=== PATIENT | female | born 1990 ===

== ENCOUNTER 2025-07-24 18:33 | Inpatient (IN) | payer MEDICAID, SELFPAY ==
--- OUTSIDE RECORDS SUMMARY | 2025-07-23 16:38 | XMS_ITS | Encounter Summary ---
Author Organization [facility][Note 3] Address [address] [place] [address] Care Team Providers Care Registered Vascular Technologist (Rvt) Name Role Phone Zandra Weiss MD Primary Care Provider [phone] Reason for Visit * Reason Comments Psychiatric Evaluation * Auth/Cert (Routine) Specialty Diagnoses / Procedures Referred By Contac t Referred To Contact Diagnoses Suicidal ideation Referral ID Status Reason Start Date Expiration Date Visits Re quested Visits Authorized [id number] 1 1 Encounter Details Date Type Department Care Team (Latest Contact Info) Description 07/23/2025 4:38 PM EDT - 07/24/2025 4:44 PM EDT Hospital Encounter [facility] [address] [phone] Cydney Newton MD [address] [place] [phone] Stella Elizabeth MD [address] [place] [phone] Pacheco Cano MD [address] [place] [phone] Shonna Celeste MD [address] [place] [phone] Suicidal ideation (Primary Dx) Discharge Disposition: Psych Hospital with Planned Readmission Social History Tobacco Use Types Packs/Day Years Used Date Smoking Tobacco: Former Cigarettes Q uit: 07/2023 Smokeless Tobacco: Never Comments No Sex and Gender Information Value Date Recorded Sex Assigned at Female 07/23/2025 5:15 PM EDT Legal Sex Female 7:52 AM EDT Gender Identity Female 07/23/2025 5:15 PM EDT Sexual Orientation Straight 07/23/2025 5: 15 PM EDT documented as of this encounter Last Filed Vital Signs Vital Sign Reading Time Taken Comments Blood Pressure 121/78 07/24/2025 8:28 AM EDT Pulse 72 07/24/2025 8:28 AM EDT Temperature 36.3 C (97.4 F) 07/24/2025 2:05 AM EDT Respiratory Rate 16 07/24/2025 8:28 AM EDT Oxygen Saturation 99% 07/24/2025 8:28 AM EDT Inhaled Oxygen Concentration - - Weight - - Height - - Body Mass Index - - documented in this encounter Discharge Summaries * Shonna Celeste MD - 07/24/2025 3:10 PM EDT Discharge Diagnosis 1. Suicidal ideation Discharge Order Date/Time 07/24/2025 3:11 PM Discharge Disposition Psych Hospital with Planned Readmission Discharge Condition Condition: Fair HPI 35 y.o. female placed in observation medically cleared with: 1. Suicidal ideation HPI Per ED note Jasmin Montenegro is a 35 y.o. year old female with mood disorder, borderline personality disorder who presents with suicidal ideation Reports worsening mood recently in the setting of psychosocial stressors and having thoughts of killing herself Denies recent attempt at self injury Denies HI Denies hallucinations No recent ETOH/illicits. Denies feeling of impnding ETOH/benzo withdrawal Adherent with current psych care When asked about physical symptoms, endorses she has a bit of a mild gradual onset headache withoutother neuro symptoms Past History Past Medical History: Diagnosis Date No known health problems Past Surgical History: Procedure Laterality Date SECTION 2014 CHOLECYSTECTOMY 2021 PARTIAL HYSTERECTOMY 09/14/2023 TUBAL LIGATION 2014 No family history on file. Social History Tobacco Use Smoking Status Former Current packs/day: 0.00 Types: Cigarettes Quit date: 07/2023 Years since quittin.0 Smokeless Tobacco Never Substance and Sexual Activity Alcohol Use Not on file Substance and Sexual Activity Drug Use Not on file Labs Reviewed COMPREHENSIVE METABOLIC PANEL - Abnormal; Notable for the following components: Result Value Chloride 111 (*) All other components within normal limits Narrative: Calculation based on the Chronic Kidney Disease Epidemiology Collaboration (CKD- EPI) equation refitwithout adjustment for race. ACETAMINOPHEN LEVEL - Abnormal; Notable for the following components: Acetaminophen Level <2 (*) All other components within normal limits TOXICOLOGY SCREEN, URINE (NON FCU) - Abnormal; Notable for the following components: Cannabinoids Qualitative, Ur Detected (*) All other components within normal limits Narrative: This urine immunoassay drug method is for medical SCREENING only and should not be used for non-medical (employment,legal) purposes. The test result(s) may be affected by dietary and over the counter medications. Negative cut-offs for these tests are set to detect DRUG ABUSE. Therapeutic levels of these drugs may not be detected. (The negative cut-offs for the drug classes are: Cocaine, Methadone, Opiates 300 ng/ml; Barbituates, Benzodiazepines 200 ng/ml; Amphetamines 1000 ng/ml; Cannabinoids 50 ng/ml; Buprenorphine 5 ng/ml; Oxycodone 100 ng/ml; Fentanyl 1 ng/ml). As this is a screening methodology, any positive results are UNCONFIRMED. Confirmation of positive results may be requested from the laboratory within 5 days. All test results should be interpreted in context of the patient's clinical condition. CBC AND AUTO DIFFERENTIAL - Normal ETHANOL - Normal SALICYLATE LEVEL - Normal TOXICOLOGY SCREEN, URINE Narrative: The following orders were created for panel order Toxicology screen, urine. Procedure Abnormality Status --------- ------ Toxicology screen, urine[[id number]] Abnormal Final result Please view results for these tests on the individual orders. EXTRA TUBES Narrative: The following orders were created for panel order Extra Tubes. Procedure Abnormality Status --------- ------ Red Top[[id number]] Final result Light Blue Top[[id number]] Final result Please view results for these tests on the individual orders. RED TOP LIGHT BLUE TOP Physical Exam General: Alert. No distress. Pulmonary: No respiratory distress Neurological: Moving all extremities at baseline Psychiatric: Calm Assessment & Plan 35 y.o. female placed in observation medically cleared with: 1. Suicidal ideation Discharge Summary 35 y.o. year old female with mood disorder, borderline personality disorder who presents with suicidal ideation After further treatment and assessment during this observation stay, I conclude that this patient is medically stable, but requires inpatient psychiatric evaluation to address an unstable behavioral condition. Total time spent preparing this discharge summary was less than 30 minutes. Shonna Celeste MD 07/24/25 [id number] documented in this encounter Discharge Instructions * Discharge Instructions* Cydney Newton MD - 07/23/2025 8:06 PM EDT You were seen in the emergency department today for evaluation. It is VERY VERY important that you follow up with your primary care doctor as well as any resourcesyou discussed with social work. Please call your doctor after your discharge and tell them about your symptoms and visit here. Call your doctor or return to the ER if you have any new or worsening symptoms before you are able to be seen for follow up, such as: Thoughts of hurting yourself or someone else or feeling otherwise unsafe New or severe pain Fever Vomiting and cannot keep yourself hydrated with fluids Trouble breathing Weakness or numbness Other questions or concerns 23/05 suicide/crisis lifeline: call or text [phone] documented in this encounter Medications at Time of Discharge escitalopram 10 MG tablet Take 1 tablet (10 mg total) by mouth daily 09/06/2024 lamoTRIgine (LaMICtal) 100 MG tablet Take 1.5 tablets (150 mg total) by mouth daily documented as of this encounter Progress Notes * AUTUMN ButtSW - 07/24/2025 2:23 PM EDT PSYCHIATRIC FACILITY TRANSFER NOTIFICATION FORM Type of Placement: Voluntary No Involuntary Yes Section 12 Needed Yes Inpatient Level of Care (check one): X Inpatient Psych ?Med/Psych ?[facility]-Psych ? Inpatient Dual Diagnosis ?[facility] ? [facility] ?Other Facility Name: [facility] Address: [address] [place] [address] Aeronautical Inspector: Admissions Accepting MD: Dr. Thompson Date/Time of Arrival: 07/24/2025 @ 6pm PATIENT Notified: X Yes: ? No (explain): Family / Legal Guardian / Health Care Proxy Notified: ? Yes (name of person/s contacted): ? No (explain): If Pt would like to anyone contacted, CHW able to do so MICKEY signed with accepting facility ([facility] patients ONLY): ? Yes ([facility] Patient) ? No (NOT a [facility] Patient) Additional Information / Instruction BLS JAMES Vaz 07/24/2025 2:23 PM * JAMES Butt - 07/24/2025 2:17 PM EDT Pt has been accepted to [facility]. Transfer form and section 12 completed and will be given to JAMES Way 07/24/2025 2:17 PM * Pacheco Cano MD - 07/24/2025 6:21 AM EDT Daily Progress Note Time In Obs. 3 hours 30 minutes 50 seconds Chief Complaint 1. Suicidal ideation HPI 35 y.o. female placed in observation medically cleared with: 1. Suicidal ideation HPI Objective Ht Readings from Last 1 Encounters: 09/25/24 6' (1.829 m) Wt Readings from Last 1 Encounters: 09/25/24 150 lb (68 kg) There is no height or weight on file to calculate BMI. Allergies[1] Vital signs in last 24 hours: [97.4 ??F (36.3 ??C)-98.1 ??F (36.7 ??C)] 97.4 ??F (36.3 ??C) [67-89] 67 [18-20] 18 (114-132)/(50-77) 114/50 Physical Exam General: Alert. No distress. Pulmonary: No respiratory distress Neurological: Moving all extremities at baseline Psychiatric: Calm Assessment/Plan 35 y.o. female placed in observation medically cleared with: 1. Suicidal ideation Based on my history, physical examination, and initial ED course, the patient's behavioral condition continues to be unstable and requires further observation to help determine final disposition. Plan will be to monitor for significant changes in medical and psychiatric status, observe for and treat agitation, psychosis, or withdrawal symptoms, coordinate care with social work team, and ensure patient safety. ED Course as of 07/24/25620Jul 24, 2025620 Received this patient in sign-out. No acute events overnight. Clinical Impressions: as of 07/24/25620 Suicidal ideation [1] Allergies Allergen Reactions Cow's Milk [Milk (Cow)] GI Intolerance Lidocaine Rash Penicillins Rash Prednisone Rash Pacheco Cano MD 07/24/25621 documented in this encounter Consult Notes * Aubrie Henderson, IVET - 07/23/2025 7:36 PM EDTAssociated Order(s): CONSULT TO MENTAL HEALTH ASSESSMENT Referred by: ED physician Chief Complaint (Reason for visit): Suicidal Ideation Intervention Started: 7:33p Intervention Ended: 8:02p Telehealth: No A consult was placed to assess for suicidal ideations. Chart was reviewed and the patient was identified by name and . Reviewed confidentiality and limits to confidentiality prior to evaluation. Plan Disposition plan: Involuntary inpatient psychiatric hospitalization Psychosocial History Jasmin Montenegro is a 35 y.o. not female who came into the ED via PD after going to Crisis due to thoughts of wanting to walk into the ocean or slit her wrist . met with Pt at bedside. Pt was alert and oriented x3, able to identify self by name and . Pt states that she self presented to the crisis center after an increased irritability, mood changes and suicidal ideations. PT states that she has had thoughts about wanting to slit her wrist and has a history of inpatient hospitalizations (last in ) and last self injurious behaviors was 9 months ago. Pt states that the increase in mood dysregulation/agitation started about 2 weeks ago after finding out her daughter attempted to commit suicide. Pt's children are not currently in her custody and lives with their grandparents. Pt discussed how she became triggered also after finding heroin in a clothing item at her job (Pt denies any use of substances besides marijuana since 2013). Ptstates that she struggled with finding the substance but was able to abstain from using it. Pt identified an increase in anger, decrease in concentration/focus and being more negative towards self. Pt states that she has a diagnosis of Borderline Personality Disorder, PTSD, Bipolar, anxiety and depression. Pt has no outside providers (PCP prescribes medication) and works at [employer]. Positive for: panic, anxiety, depression, sleep change, appetite change, and suicidal ideation Negative for: yuniel, psychosis, anhedonia, anergia, delusions, homicidal ideation, and thought disorder Collateral contacts: Attempts made to contact partner; Abhilash ([phone]) VM left, and friend, Ifeoma ([phone]) VM not set up. Depression Screening PHQ-9 [Not at all (0) Several days (1) More than half the days (2) Nearly every day (3)] Little interest or pleasure in doing things: 3 Feeling down, depressed, or hopeless: 3 Trouble falling or staying asleep, or sleeping too much: 3 Feeling tired or having little energy: 3 Poor appetite or overeatin Feeling bad about yourself - or that you are a failure or have let yourself or your family down: 3 Trouble concentrating on things, such as reading the newspaper or watching television: 3 Moving or speaking so slowly that other people could have noticed. Or the opposite - being so fidgety or restless that you have been moving around a lot more than usual: 3 Thoughts that you would be better off , or of hurting yourself in some way: 3 PHQ-9 Total Score: 27 0 - 4: None to Minimal Depression 5 - 9: Mild Depression 10 - 14: Moderate Depression 15 - 19: Moderately Severe Depression 20 - 27: Severe Depression Anxiety Screening RUKHSANA 7 Over the last 2 weeks, how often have you been bothered by the following problems? [Not at all (0) Several days (1) More than half the days (2) Nearly every day (3)] Feeling nervous, anxious or on edge 3 Not being able to stop or control worrying 3 Worrying too much about different things 3 Trouble relaxing 3 Being so restless that it is hard to sit still 3 Becoming easily annoyed or irritable 3 Feeling afraid as if something awful might happen 3 RUKHSANA-7 Total Score: 21 0 - 4: None to Minimal Anxiety 5 - 9: Mild Anxiety 10 - 14: Moderate Anxiety 15 - 21: Severe Anxiety Past Psychiatric History Current treatment providers: Yes-PCP History of inpatient psychiatric hospitalizations: Yes History of suicide attempts/self-injurious behavior: Yes History of violence: No Access to weapons: Yes-Pt has knives (non-kitchen ones) History of post- depression Yes Substance Use History and Assessment Substances used: cannabis Amount: daily Frequency and duration of use: daily Method of use:ingestion/inhalation Last use: this morning Age of first use: N/A Longest period of sobriety: 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 Never Monthly or less 2 - 4 times per month 2 - 3times per week 4 + times per week 1 How many drinks of alcohol do you drink on a typical day when you are drinking? 1 to 2 3 to 4 5 to 6 7 to 9 10 or more 0 How often have you had 6 or more drinks on a single occasion in the last year? Never Less than monthly Monthly Weekly Daily or almost daily 0 Total Score* 1 Brief Negotiated Interview: The AUDIT-C score was less than 3 for women and less than for 4 for men, so a brief negotiated interview was not conducted with the patient Drug Abuse Screening Test DAST -10 Assessment: These questions refer to drug use in the past 12 months. 1. Have you used drugs other than those required for medical reasons? No 2. Do you use more than one drug at a time? No 3. Are you always able to stop using drugs when you want to? Yes 4. Have you had blackouts or flashbacks as a result of drug use? No 5. Do you ever feel bad or guilty about your drug use? No 6. Does your spouse (or parents) ever complain about your involvement with drugs? No 7. Have you neglected your family because of your use of drugs? No 8. Have you engaged in illegal activities in order to obtain drugs? No 9. Have you ever experienced withdrawal symptoms (felt sick) when you stopped taking drugs? No 10. Have you had medical problems as a result of your drug use (e.g., memory loss, hepatitis, convulsions, bleeding, etc.)? No Scoring Score 1 point for each question answered ???Yes,?? except for question 3 for which a ???No?? receives 1 point. DAST Score: 0 Interpretation of Score: Score Degree of Problems Related to Drug Abuse Suggested Action 0 No problems reported None at this time 1-2 Low level Monitor Reassess at a later date 3-5 Moderate level Further investigation 6-8 Substantial level Intensive assessment 9-10 Severe level Intensive assessment PT states that she uses marijuana daily but denies any other substance use. Family Psychiatric History: noncontributory Developmental/Social History Marital status: lives with intermediate card tender partner Living arrangements: lives with intermediate card tender partner Support system: friends/family Employment status: works at [employer] Source of income: employment Education level: N/A Healthcare access/barriers: uninsured ADLS: independent IADLS: independent HCP: No Guardian: No Legal history:No history:No Trauma history: Yes Mental Status Exam Appearance: alert well appearing Behavior: restless and cooperative Consciousness/Orientation: oriented to time, place, person, and reason for visit Eye contact: mainly direct Motor activity: no psychomotor agitation and no psychomotor retardation Mood: anxious, appropriate to circumstances, and depressed Affect: full-range and appropriate Speechnormal rate, tone and rhythm Thought process: normal Thought content: suicidal Perception (hallucinations): none Delusions: none elicited Suicidal/Homicidal Ideation: suicidal ideation with plan and intent, no homicidal ideation Concentration/attention: difficulty with focus and attention and down slightly Memory: recent and remote memory intact Intelligence/fund of knowledge: appears average Impulsivity: good impulse control Reliability: good historian Insight: good Judgment: unimpaired Psychological Risk Assessment Current Risk Behavior: Description: Suicidal and Self-Harm Thoughts/Ideation/plan/means/intent:Description: Ideation, Plan, Means, and Intent History of Risk Behavior or Harmful Acts to Self or Others: Yes Risk and protective factors:Description: suicidal history, self harm 9 months ago Impression/Formulation Patient is a 35 y/o female who was transported via EMS from [facility] due to increasing suicidal ideations with plan and increased mood dysregulation, depression and anxiety. Patient endorses thoughts of wanting to slit her wrist and states that she has felt this coming for a while . Pt has a history of inpatient hospitalizations and self injurious behaviors. Pt reports being diagnosed with borderline personality disorder, PTSD, depression, anxiety and bipolar. Pt is currently on medicationsbut states they are not working . Pt has no outpatient psych or providers but does see PCP for med management. Pt would benefit from inpatient psych hospitalization and process was explained. Diagnosis:MDD F33.9, RUKHSANA F41.1 Therapy plan: Target symptoms:depression, anxiety, suicidal ideations Goals of therapy:reduction in symptoms, stablization Patients capacity to participate and benefit from therapy:good Estimated duration of treatment/number of sessions:1-3 Treatment is expected to improve the health status and/or functioning of the patient. yes Does pt meet CCS level or care, and if not why?:no, acuity Aubrie Henderson LCSW 07/23/2025 @ 7:36 PM documented in this encounter ED Notes * Tasha Shook RN - 07/24/2025 4:18 PM EDT Report and all of pt's belongings including cell phone at this time. * Tasha Shook RN - 07/24/2025 3:26 PM EDT Report given to [facility]. Report given to OSVALDO Diaz * Tasha Shook RN - 07/24/2025 12:18 PM EDT Pt reporting 9/10 headache at this time. made aware. * Tasha Shook RN - 07/24/2025 7:21 AM EDT Assumed care. Pt resting comfortably in bed at this time. Equal unlabored respirations noted. Will continue to monitor pt's mood and behaviors. * Noel Fleming RN - 07/24/2025 6:27 AM EDT PT HAS BEEN SLEEPING FOR MOST OF THE NIGHT, BREATHING HAS BEEN EVEN AND UNLABORED, PT C/O HEAD ACHEEARLIER AND HAD GOOD EFFECT FROM THE TYLENOL, PT SLEEPING AT THIS TIME * Noel Fleming RN - 07/24/2025 2:00 AM EDT THE [employer] SYSTEM WAS UNAVAILABLE FOR 1 HOUR ON 07/24/25 FROM 01:00 TO 02:00. DOWNTIME DOCUMENTATION IS LOCATED IN THE PAPER CHART AND WILL BE SCANNED BY HIM. * Noel Fleming RN - 07/23/2025 11:34 PM EDT ASSUMED CARE OF PT, PT QUIETLY TALKING ON THE PHONE AND WATCHING TV AT THIS TIME, NO COMPLAINTS OFFERED, WILL CONTINUE TO MONITOR * Basia Fontana RN - 07/23/2025 11:11 PM EDT Patient out of shower and returned to bed * Basia Fontana RN - 07/23/2025 10:53 PM EDT Patient provided fresh scrubs and sitter allowed for shower * Cydney Newton MD - 07/23/2025 6:44 PM EDT Service Date: ED Arrival Date 07/23/25 Chief Complaint Chief Complaint Patient presents with Psychiatric Evaluation HPI HPI Jasmin Montenegro is a 35 y.o. year old female with mood disorder, borderline personality disorder who presents with suicidal ideation Reports worsening mood recently in the setting of psychosocial stressors and having thoughts of killing herself Denies recent attempt at self injury Denies HI Denies hallucinations No recent ETOH/illicits. Denies feeling of impnding ETOH/benzo withdrawal Adherent with current psych care When asked about physical symptoms, endorses she has a bit of a mild gradual onset headache withoutother neuro symptoms ROS Review of Systems Past History Past Medical History: Diagnosis Date No known health problems Past Surgical History: Procedure Laterality Date SECTION 2014 CHOLECYSTECTOMY 2021 PARTIAL HYSTERECTOMY 09/14/2023 TUBAL LIGATION 2014 No family history on file. Social History[1] LMP/OB Status OB Status Hysterectomy [3] Physical Exam Triage Vitals [07/23/25 1644] BP 132/76 Heart Rate 89 Resp 20 Temp 98.1 ??F (36.7 ??C) Temp src Oral SpO2 97 % Weight Height There is no height or weight on file to calculate BMI. Patient weight not recorded Physical Exam Gen: non-toxic, NAD HENT: NC/AT. Oropharynx clear Eyes: Sclera anicteric. Neck: Trachea midline Cor: RRR, 2+ peripheral pulses Resp: Unlabored respirations, symmetric chest rise Abd: soft, NTND Ext: 2+ peripheral pulses. No LE edema. Neuro: A&Ox3. Motor strength grossly symmetric. Psych: calm, cooperative Skin: WDI ED Course Labs reviewed by me: Labs Reviewed COMPREHENSIVE METABOLIC PANEL - Abnormal; Notable for the following components: Result Value Chloride 111 (*) All other components within normal limits Narrative: Calculation based on the Chronic Kidney Disease Epidemiology Collaboration (CKD- EPI) equation refitwithout adjustment for race. ACETAMINOPHEN LEVEL - Abnormal; Notable for the following components: Acetaminophen Level <2 (*) All other components within normal limits CBC AND AUTO DIFFERENTIAL - Normal ETHANOL - Normal SALICYLATE LEVEL - Normal TOXICOLOGY SCREEN, URINE Narrative: The following orders were created for panel order Toxicology screen, urine. Procedure Abnormality Status --------- ------ Toxicology screen, urine[[id number]] Please view results for these tests on the individual orders. TOXICOLOGY SCREEN, URINE (NON FCU) EXTRA TUBES Narrative: The following orders were created for panel order Extra Tubes. Procedure Abnormality Status --------- ------ Red Top[[id number]] In process Light Blue Top[[id number]] In process Please view results for these tests on the individual orders. RED TOP LIGHT BLUE TOP Radiology imaging reviewed by me: No orders to display Procedures No notes on file Progress Medical Decision Making Jasmin Montenegro is a 35 y.o. female who presents with suicidal ideation. Most consistent with underlying psych disorder. Differential includes depression, SI, substance use disorder, psychotic disorder. Clinical presentation not consistent with acute organic etiology such as delirium, FLOOR REFINISHER pathology, acute tox ingestion/withdrawal. she has no physical complaints and an unremarkable exam. -basic and tox labs -monitor for s/sx of withdrawal -1:1 sitter for safety -Sw eval Workup as above Evaluated by social work, plan for inpatient psychiatric admission for stabilization Will place in observation in the ED for further psychiatric evaluation and care, including ongoing assessment, monitoring for signs of withdrawal or worsening condition, medication as needed, and facilitation of safe disposition. NUMBER OF PROBLEMS: Chronic illnesses addressed (2 for mod): Patient has a history of: mood disorder, borderline personality disorder Patient has an acute illness or injury: I considered: metabolic derangement which poses a threat to bodily function. Patient has a severe exacerbation or progression of: AMOUNT OF DATA (2 for high): Tests and historians included (3): I ordered and reviewed tests as listed above in results and below, including: Any ECG listed under procedures. No orders to display Any labs above I reviewed external records and found: seen at another ER in december for abdominal pain I obtained history and assessment from patient I discussed management or test interpretation with: social work manager, see above, oncoming ED physician RISK: Social determinants of health that significantly affected care include: Prescription management included: New Prescriptions No medications on file Decisions of care included (high): anticipate transfer for psychiatric care Medications considered or given included (high): Medications nicotine 21 MG/24HR (NICODERM CQ) transdermal system 1 patch (has no administration in time range) acetaminophen (TYLENOL EXTRA STRENGTH) tablet 1,000 mg (1,000 mg Oral Given 07/23/251937) Clinical Impressions: Clinical Impressions: as of 07/23/252005 Suicidal ideation Care Transferred: Disposition Data Unavailable [1] Social History Socioeconomic History Marital status: Single Tobacco Use Smoking status: Former Current packs/day: 0.00 Types: Cigarettes Quit date: 07/2023 Years since quittin.0 Smokeless tobacco: Never Vaping Use Vaping status: Every Day Substances: Nicotine Cydney Newton MD 07/23/252007 * Suzanne Nunn RN - 07/23/2025 6:40 PM EDT New UA collected and sent to lab at this time. * Andressa Díaz MA - 07/23/2025 5:13 PM EDT Belongings on hook 5. 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 Reports not the first time skyla had suicidal thoughts, previous suicide attempt in 2020. Pt calm and cooperative with staff, resting quietly in stretcher. * Olga Sky RN - 07/23/2025 4:41 PM EDT Pt BIBPD on sec 12 +SI w/ plan to walk into ocean or cut wrists. Pt calm and cooperative on arrival. documented in this encounter Miscellaneous Notes * ED Procedure Note - Shonna Celeste MD - 07/24/2025 11:43 AM EDTAssociated Order(s): EKG electrocardiogram EKG electrocardiogram Date/Time: 07/24/2025 11:43 AM Performed by: Shonna Celeste MD Authorized by: Shonna Celeste MD Measurements: BPM: 73 GA Duration: 108 ms Findings: Rate: normal Rhythm: Sinus rhythm Normal intervals noted Conduction: normal ST Segments: normal T Waves: normal Clinical impression: normal ECG Interpreted by ED physician Comparison to Previous ECG: Comparison from 05/28/2024 similar to previous ECG Shonna Celeste MD 07/24/25 1144 documented in this encounter Plan of Treatment Not on file documented as of this encounter Procedures Procedure Name Priority Date/Time Associated Diagnosis Comments ECG 12-LEAD STAT 07/24/2025 11:43 AM EDT TOXICOLOGY SCREEN, URINE (NON FCU) STAT 07/23/2025 5:55 PM EDT TOXICOLOGY SCREEN, URINE STAT 07/23/2025 5:55 PM EDT EXTRA TUBES Routine 07/23/2025 4:54 PM EDT RED TOP Routine 07/23/2025 4:54 PM EDT LIGHT BLUE TOP Routine 07/23/2025 4:54 PM EDT CBC AND AUTO DIFFERENTIAL STAT 07/23/2025 4:54 PM EDT ETHANOL STAT 07/23/2025 4:54 PM EDT ACETAMINOPHEN LEVEL STAT 07/23/2025 4 :54 PM EDT SALICYLATE LEVEL STAT 07/23/2025 4:54 PM EDT COMPREHENSIVE METABOLIC PANEL STAT 07/23/2025 4:54 PM EDT documented in this encounter Results * ECG 12-LEAD (07/24/2025 11:43 AM EDT) Shonan Lanza MD - 07/24/2025 11:43 AM EDT Shonna Celeste MD 07/24/2025 11:44 AM EKG electrocardiogram Date/Time: 07/24/2025 11:43 AM Performed by: Shonna Celeste MD Authorized by: Shonna Celeste MD Measurements: BPM: 73 GA Duration: 108 ms Findings: Rate: normal Rhythm: Sinus rhythm Normal intervals noted Conduction: normal ST Segments: normal T Waves: normal Clinical impression: normal ECG Interpreted by ED physician Comparison to Previous ECG: Comparison from 05/28/2024 similar to previous ECG us Shonna Celeste MD ECG ORDERABLES Final Resu lt * (ABNORMAL) Toxicology screen, urine (07/23/2025 5:55 PM EDT) Amphetamine Qualitative, Ur None Detected None Detected 07/23/2025 7:29 PM EDT [facility] Barbiturates Qualitative, Ur None Detected None Detected 07/23/2025 7:29 PM EDT [facility] Benzodiazepines Qualitative, Ur None Detected None Detected 07/23/2025 7:29 PM EDT [facility] Methadone Qualitative, Ur None Detected None Detected 07/23/2025 7:29 PM EDT [facility] Opiates Qualitative, Ur None Detected None Detected 07/23/2025 7:29 PM EDT [facility] Cannabinoids Qualitative, Ur Detected(A) None Detected 07/23/2025 7:29 PM EDT [facility] Cocaine Qualitative, Ur None Detected None Detected 07/23/2025 7:29 PM EDT [facility] Oxycodone Qualitative Urine None Detected None Detected 07/23/2025 7:29 PM EDT [facility] Buprenorphine Qualitative Urine None Detected None Detected 07/23/2025 7:29 PM EDT [facility] Fentanyl Qualitative, Ur None Detected None Detected 07/23/2025 7:29 PM EDT [facility] Creatinine, Urine 91.0 20.0 - 400.0 mg/dL 07/23/2025 7:29 PM EDT [facility] Urine Collection / Unknown 07/23/2025 5:55 PM EDT 07/23/2025 7:01 PM EDT Narrative [facility] - 07/23/2025 7:29 PM EDT This urine immunoassay drug method is for medical SCREENING only and should not be used for non-medical (employment,legal) purposes. The test result(s) may be affected by dietary and over the counter medications. Negative cut-offs for these tests are set to detect DRUG ABUSE. Therapeutic levels of these drugs may not be detected. (The negative cut-offs for the drug classes are: Cocaine, Methadone, Opiates 300 ng/ml; Barbituates, Benzodiazepines 200 ng/ml; Amphetamines 1000 ng/ml; Cannabinoids 50 ng/ml; Buprenorphine 5 ng/ml; Oxycodone 100 ng/ml; Fentanyl 1 ng/ml). As this is a screening methodology, any positive results are UNCONFIRMED. Confirmation of positive results may be requested from the laboratory within 5 days. All test results should be interpreted in context of the patient's clinical condition. us Triage Protocol Emergency MD URINE ORDERABLES Fi nal Result [facility] [address] [place] [id number] * Light Blue Top (07/23/2025 4:54 PM EDT) Extra Tube Auto resulted. 07/23/2025 8:56 PM EDT [facility] Comment:Hold for add-ons. Blood 07/23/2025 4:54 PM EDT 07/23/2025 4:57 PM EDT Cydney Newton MD LAB BLOOD ORDERABLES Final Res ult Performing Organization Address City/[facility]/ZIP Co de Phone Number [facility] [address] [place] [phone] * Red Top (07/23/2025 4:54 PM EDT) Extra Tube Auto resulted. 07/23/2025 8:56 PM EDT [facility] Comment:Hold for add-ons. Blood 07/23/2025 4:54 PM EDT 07/23/2025 4:57 PM EDT Cydney Newton MD LAB BLOOD ORDERABLES Final Res ult Performing Organization Address [facility]/ZIP Co de Phone Number [facility] [address] [place] [phone] * Salicylate level (07/23/2025 4:54 PM EDT) Salicylate <3.0 <30.0 mg/dL 07/23/2025 5:18 PM EDT [facility] Blood Venipuncture / Unknown 07/23/2025 4:54 PM EDT 07/23/2025 4:54 PM EDT Sintia Rushing MD LAB BLOOD ORDERABLE S Final Result Performing Organization Address City/[facility]/ZIP Co de Phone Number [facility] [address] [place] [phone] * (ABNORMAL) Acetaminophen level (07/23/2025 4:54 PM EDT) Acetaminophen Level <2(L) 10 - 20 ug/mL 07/23/2025 5:18 PM EDT [facility] Blood Venipuncture / Unknown 07/23/2025 4:54 PM EDT 07/23/2025 4:54 PM EDT us Triage Protocol Emergency MD LAB BLOOD ORDERABLE S Final Result Performing Organization Address City/[facility]/ZIP Co de Phone Number [facility] [address] [place] [address] * Ethanol (07/23/2025 4:54 PM EDT) Ethanol Lvl <3 <10 mg/dL 07/23/2025 5:18 PM EDT [facility] Blood Venipuncture / Unknown 07/23/2025 4:54 PM EDT 07/23/2025 4:54 PM EDT us Triage Protocol Emergency MD LAB BLOOD ORDERABLE S Final Result Performing Organization Address City/[facility] Co de Phone Number [facility] [address] [place] [phone] * (ABNORMAL) Comprehensive metabolic panel (07/23/2025 4:54 PM EDT) Sodium 140 136 - 145 mEq/L 07/23/2025 5:17 PM EDT [facility] Potassium 3.6 3.5 - 5.1 mEq/L 07/23/2025 5:17 PM EDT [facility] Chloride 111(H) 98 - 109 mEq/L 07/23/2025 5:17 PM EDT [facility] CO2 24 20 - 31 mEq/L 07/23/2025 5:17 PM EDT [facility] Anion Gap 5 4 - 15 mEq/L 07/23/2025 5:17 PM EDT [facility] Glucose 86 70 - 100 mg/dL 07/23/2025 5:17 PM EDT [facility] Creatinine 0.74 0.50 - 1.00 mg/dL 07/23/2025 5:17 PM EDT [facility] eGFR (Female) >60 60 - 115 mL/min 07/23/2025 5:17 PM EDT [facility] BUN 10 9 - 23 mg/dL 07/23/2025 5:17 PM EDT [facility] Calcium 9.2 8.3 - 10.6 mg/dL 07/23/2025 5:17 PM EDT [facility] Total Protein 7.2 5.7 - 8.2 g/dL 07/23/2025 5:17 PM EDT [facility] Albumin 4.3 3.2 - 4.8 g/dL 07/23/2025 5:17 PM EDT [facility] A/G Ratio 1.5 1.0 - 2.3 07/23/2025 5:17 PM EDT [facility] Total Bilirubin 0.4 0.2 - 1.0 mg/dL 07/23/2025 5:17 PM EDT [facility] AST 19 13 - 40 U/L 07/23/2025 5:17 PM EDT [facility] Alkaline Phosphatase 56 46 - 116 IU/L 07/23/2025 5:17 PM EDT [facility] ALT 19 7 - 40 U/L 07/23/2025 5:17 PM EDT [facility] Blood Venipuncture / Unknown 07/23/2025 4:54 PM EDT 07/23/2025 4:54 PM EDT Narrative [facility] - 07/23/2025 5:17 PM EDT Calculation based on the Chronic Kidney Disease Epidemiology Collaboration (CKD- EPI) equation refit without adjustment for race. us Triage Protocol Emergency MD LAB BLOOD ORDERABLE S Final Result [facility] [address] [place] [address] * CBC and Auto Differential (07/23/2025 4:54 PM EDT) WBC 7.4 4.8 - 11.2 10*3/ L 07/23/2025 5:04 PM EDT [facility] RBC 3.86 3.60 - 5.40 10*6/ L 07/23/2025 5:04 PM EDT [facility] HGB 12.2 12.0 - 15.8 g/dL 07/23/2025 5:04 PM EDT [facility] HCT 36.5 36.0 - 48.0 % 07/23/2025 5:04 PM EDT [facility] MCV 94.6 82.0 - 98.0 fL 07/23/2025 5:04 PM EDT [facility] MCH 31.6 27.0 - 35.0 pg 07/23/2025 5:04 PM EDT [facility] MCHC 33.4 32.0 - 37.0 g/dL 07/23/2025 5:04 PM EDT [facility] RDW 12.5 12.0 - 15.0 % 07/23/2025 5:04 PM EDT [facility] PLT 300 150 - 400 10*3/ L 07/23/2025 5:04 PM EDT [facility] MPV 9.0 7.0 - 14.0 fL 07/23/2025 5:04 PM EDT [facility] Neut % 61.8 45.0 - 85.0 % 07/23/2025 5:04 PM EDT [facility] Immature Granulocytes % 0.3 0 - 5.0 % 07/23/2025 5:04 PM EDT [facility] Lymph % 29.5 15.0 - 45.0 % 07/23/2025 5:04 PM EDT [facility] [place] % 6.1 0.0 - 12.0 % 07/23/2025 5:04 PM EDT [facility] Eos % 0.9 0.0 - 7.0 % 07/23/2025 5:04 PM EDT [facility] Baso % 1.4 0.0 - 3.0 % 07/23/2025 5:04 PM EDT [facility] NRBC% 0 0 /100 WBC /100 WBC 07/23/2025 5:04 PM EDT [facility] Neut # 4.6 2.2 - 9.5 10*3/ L 07/23/2025 5:04 PM EDT [facility] Immature Granulocytes Absolute 0.02 0.00 - 0.56 10*3/ L 07/23/2025 5:04 PM EDT [facility] L[place] # 2.2 0.7 - 5.0 10*3/ L 07/23/2025 5:04 PM EDT [facility] [place] # 0.5 0.0 - 1.3 10*3/ L 07/23/2025 5:04 PM EDT [facility] Eos # 0.1 0.0 - 0.4 10*3/ L 07/23/2025 5:04 PM EDT [facility] Baso # 0.1 0.0 - 0.3 10*3/ L 07/23/2025 5:04 PM EDT [facility] Blood Venipuncture / Unknown 07/23/2025 4:54 PM EDT 07/23/2025 4:54 PM EDT us Triage Protocol Emergency MD LAB BLOOD ORDERABLE S Final Result Performing Organization Address City/State/[facility] Co de Phone Number [facility] [address] [place] [address] documented in this encounter Visit Diagnoses Diagnosis Suicidal ideation- Primary Suicidal ideation documented in this encounter Admitting Diagnoses Diagnosis Suicidal ideation documented in this encounter Administered Medications Active Administered Medications - up to 3 most recent administrations Medication Order MAR Action Action Date Dose Rate Site escitalopram (LEXAPRO) tablet 10 mg 10 mg, Oral, At bedtime, First dose on Tue07/23/25 at 2100 Given 07/23/2025 8:45 PM EDT 10 mg lamoTRIgine (LaMICtal) tablet 150 mg 150 mg, Oral, Daily, First dose on Tue07/24/25 at 0900, Look-alike / Sound-alike Medication Given 07/24/2025 8:57 AM EDT 150 mg nicotine 21 MG/24HR (NICODERM CQ) transdermal system 1 patch 1 patch, Transdermal, Daily, First dose on Tue07/23/25 at 2002, Remove patch after 24 hours. *For Topical Use Only* P-listed Waste Code- Use P-LISTED WASTE container, place med and packaging in small plastic bag before placing in waste container Patch Applied 07/24/2025 8:58 AM EDT 1 patch Chest Patch Applied 07/23/2025 8:22 PM EDT 1 patch Right Arm Inactive Administered Medications - up to 3 most recent administrations Medication Order MAR Action Action Date Dose Rate Site acetaminophen (TYLENOL EXTRA STRENGTH) tablet 1,000 mg 1,000 mg, Oral, Once, On Tue07/23/25 at 1933, For 1 dose, Adult MAX: NOT to exceed 4 grams of ACETAMINOPHEN per 24 hrs from ALL sources. Given 07/23/2025 7:38 PM EDT 1,000 mg acetaminophen (TYLENOL) tablet 650 mg 650 mg, Oral, Once, On Tue07/24/25 at 0458, For 1 dose, Adult MAX: NOT to exceed 4 grams of ACETAMINOPHEN per 24 hrs from ALL sources. Given 07/24/2025 4:59 AM EDT 650 mg acetaminophen (TYLENOL) tablet 650 mg 650 mg, Oral, Once, On Tue07/24/25 at 1233, For 1 dose, Adult MAX: NOT to exceed 4 grams of ACETAMINOPHEN per 24 hrs from ALL sources. Given 07/24/2025 12:37 PM EDT 650 mg documented in this encounter Active and Recently Administered Medications Times are shown in EDT. Scheduled Medication Order 07/22/2025 07/23/2025 07/24/2025 acetaminophen (TYLENOL EXTRA STRENGTH) tablet 1,000 mg (COMPLETED) 1,000 mg, Oral, Once, On Tue07/23/25 at 1933, For 1 dose, Adult MAX: NOT to exceed 4 grams of ACETAMINOPHEN per 24 hrs from ALL sources. 1937 (Given - Provider: Basia Fontana RN) acetaminophen (TYLENOL) tablet 650 mg (COMPLETED) 650 mg, Oral, Once, On Tue07/24/25 at 0458, For 1 dose, Adult MAX: NOT to exceed 4 grams of ACETAMINOPHEN per 24 hrs from ALL sources. 458 (Given - Provid er: Noel Fleming RN) acetaminophen (TYLENOL) tablet 650 mg (COMPLETED) 650 mg, Oral, Once, On Tue07/24/25 at 1233, For 1 dose, Adult MAX: NOT to exceed 4 grams of ACETAMINOPHEN per 24 hrs from ALL sources. 1237 (Given - Provid er: Tasha Shook, OSVALDO) escitalopram (LEXAPRO) tablet 10 mg 10 mg, Oral, At bedtime, First dose on Tue07/23/25 at 2100 2044 (Given - Provider: Basia Fontana RN) 2100 (Due) lamoTRIgine (LaMICtal) tablet 150 mg 150 mg, Oral, Daily, First dose on Tue07/24/25 at 0900, Look-alike / Sound-alike Medication 0857 (Given - Provid er: Tasha Shook RN) nicotine 21 MG/24HR (NICODERM CQ) transdermal system 1 patch 1 patch, Transdermal, Daily, First dose on Tue07/23/25 at 2002, Remove patch after 24 hours. *For Topical Use Only* P-listed Waste Code- Use P-LISTED WASTE container, place med and packaging in small plastic bag before placing in waste container 2021 (Patch Applied - Provider: Basia Fontana RN) 0857 (Patch Removed - Provider: Tasha Shook RN)0858 (Patch Applied - Provider: Tasha Shook RN) documented in this encounter Care Teams Registered Vascular Technologist (Rvt) Relationship Specialty Start Date End Date Zandra Weiss MD [address] [place], [place] [address], [place] [address] PCP - General Internal Medicine 05/28/24 documented as of this encounter
--- OUTSIDE RECORDS SUMMARY | 2025-07-24 18:38 | XMS_ITS | Encounter Summary ---
Author Organization [facility] [place] Address [address] [place] [address] Care Team Providers Care Manufacturing Clerk Name Role Phone Zandra Weiss MD Primary Care Provider [phone] Encounter Details Date Type Department Care Team (Latest Contact Info) Description 07/23/2025 Travel Social History Tobacco Use Types Packs/Day Years Used Date Smoking Tobacco: Former Cigarettes Q uit: 07/2023 Smokeless Tobacco: Never Comments No Sex and Gender Information Value Date Recorded Sex Assigned at Female 07/23/2025 5:15 PM EDT Legal Sex Female 7:52 AM EDT Gender Identity Female 07/23/2025 5:15 PM EDT Sexual Orientation Straight 07/23/2025 5: 15 PM EDT documented as of this encounter Plan of Treatment Not on file documented as of this encounter Visit Diagnoses Not on filedocumented in this encounter Care Teams Manufacturing Clerk Relationship Specialty Start Date End Date Zandra Weiss MD [address] [place] [address] [address], [address] [address] PCP - General Internal Medicine 05/28/24 documented as of this encounter
--- OUTSIDE RECORDS SUMMARY | 2025-07-24 18:38 | XMS_ITS | Patient Health Record ---
Author Organization [facility] Address [address] [place] [id number] Care Team Providers Care Pelletizer Tender Name Role Phone OUTSIDE, PCP Primary Care Provider UnavailMalena Pearson Unavailable [phone] Mirian Griffith DMD Unavailable [phone] Allergies Allergen (clinical drug ingredient) Drug/Non Drug Allergy documented on EMR Reaction Allergy Type Onset Date Status penicillin V penicillin V potassium Unknown Drug Allergy Active prednisone predniSONE Unknown Drug Allergy Activ e lidocaine Unknown Drug Allergy Active Reason For Referral Reason Please evaluate teet h #28,29,30 for Ext , Thank you Diagnosis 1 Dental cavities (K02 .9) Referral Organization [facility] of Referring Provider First Name Mirian Referring Provider Last Name Kay elam Referring Provider Speciality Dentist - Pricing/Signage Team Member Referred Provider Specialty Oral Surgery Referral Priority Routine Medications Medication SIG (Take, Route, Fr equency, Duration) Notes Start Date End Date Status clindamycin 300 mg 1 cap(s) orally ever y 8 hours; Duration: 7 days 04/06/2025 Unknown clindamycin 300 mg 1 cap(s) orally ever y 6 hours; Duration: 5 days 05/08/2025 Active lamoTRIgine Active Vital Signs Temperature 98.8 degrees Fahrenheit 04/06/2025 Oximetry 100 % 04/06/2025 Blood pressure diastolic 70 mm Hg 05/08/2025 Blood pressure systolic 106 mm Hg 05/08/2025 Encounters Encounter Location Date Provider Diagnosis [facility] [address] [place], [place] [id number] 04/06/2025 Malena Joya Dental abscess K04.7 [facility] [address] [place], [place] [id number] 05/08/2025 Mirian Nascimento Dental examination Z01.20 [facility] [address] [phone] 04/22/2025 Malena Joya Assessments Encounter Date Diagnosis (ICD Code) Assessment Notes Treatment Notes Treatment Clinical Notes Section Notes 04/06/2025 Dental abscess (ICD-10 - K04.7) Patient to use medication as ordered above. Stressed importance of calling dental clinic as soon as possible for appointment.. Can use warm salt water gargles for discomfort. If patient experiences fevers, severe uncontrolled pain, increased drainage/swelling or difficulty swallowing, should immediately go to ER for further treatment. Patient to follow up if no relief noted or with worsening symptoms if unable to see dentist. Patient verbalized understanding and agreement with plan of care. 05/08/2025 Dental examination (ICD-10 - Z01.20) Plan Of Treatment No Information
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
--- OUTSIDE RECORDS SUMMARY | 2025-07-24 18:38 | XMS_ITS | Encounter Summary ---
Author Organization [facility] Address [address] [place] [address] Care Team Providers Care Manager Market Name Role Phone Og Silav MD Primary Care Provider [phone] James Hood MD Primary Care Provider [phone] Reason for Visit * Reason Comments Med Refill Encounter Details Date Type Department Care Team ([facility] Contact Info) Description 04/22/2025 Refill [facility] [address] [place] [address] Adelina Madera NP [address] [place] [address] Moderate episode of recurrent major depressive disorder (CMS-HCC) Social History Tobacco Use Types Packs/Day Years Used Date Smoking Tobacco: Former Cigarettes Q uit: 07/02/2023 Smokeless Tobacco: Never Comments:Vaping daily Alcohol Use Standard Drinks/Week Comments [...] Orientation Bisexual 10/28/2023 5: 26 AM EST documented as of this encounter Plan of Treatment Upcoming Encounters Date Type Department Care Team (Late st Contact Info) Description 11/21/2025 2:15 PM EST Office Visit [facility] [address] [place] [address] documented as of this encounter Visit Diagnoses Diagnosis Moderate episode of recurrent major depressive disorder ([facility]-HCC) documented in this encounter Care Teams Manager Market Relationship Specialty Start Date End Date Og Silva MD PCP - General Hospitalist 03/16/23 04/28/25 James Hood MD [address] [place] [address] PCP - General Internal Medicine 04/29/25 documented as of this encounter
--- OUTSIDE RECORDS SUMMARY | 2025-07-24 18:38 | XMS_ITS | Encounter Summary ---
Author Organization [facility] Address [address] [place] [address] Care Team Providers Care Local Area Network Administrator Name Role Phone Pcp, No Primary Care Provider Zandra Beard MD Primary Care Provider [phone] Encounter Details Date Type Department Care Team (Late st Contact Info) Description 09/27/2023 Procedure Pass [address] [address] Social History Tobacco Use Types Packs/Day Years [...] on filedocumented in this encounter Care Teams Local Area Network Administrator Relationship Specialty Start Date End Date Pcp, Cynthia [address] PCP - General 09/27/23 05/27/24 Zandra Weiss MD [address] [place] [address], [facility], [address] [address] PCP - General Internal Medicine 05/28/24 documented as of this encounter
--- OUTSIDE RECORDS SUMMARY | 2025-07-24 18:38 | XMS_ITS | Clinical Summary ---
Author Organization [facility] Address [address] [place] [phone] Phone Care Team Providers Care Staffing Mgr Name Role Phone Pcp, None MD Primary Care Provider Unavailabl e Allergies Active Allergy Reactions Criticality Noted Date Comments Lidocaine Rash Low 10/21/2022 Milk (Cow) GI Intolerance 09/27/2023 Penicillins Rash Low 10/21/2022 Prednisone Rash Low 10/21/2022 Medications Medication Sig Dispensed Refills Start Date End Date Status escitalopram (LEXAPRO) 10 MG tablet TAKE 1 TABLET BY MOUTH 1 TIME EACH DAY. 09/06/2024 Active Social History Tobacco Use Types Packs/Day Years Used Date Smoking Tobacco: Every Day Cigarettes 1 20 Smokeless Tobacco: Never Tobacco Cessation:Ready to Q uit: Not Asked; Counseling Given: Not Answered Alcohol Use Standard Drinks/Week Comments Not Currently 0 (1 standard drink = 0.6 oz pur e alcohol) Sex and Gender Information Value Date Recorded Sex Assigned at Not on file Gender Identity Not on file Sexual Orientation Not on file Last Filed Vital Signs Vital Sign Reading Time Taken Comments Blood Pressure 135/78 01/21/2025 8:37 PM EDT Pulse 76 01/21/2025 8:37 PM EDT Temperature 36.9 C (98.4 F) 01/21/2025 8:37 PM EDT Respiratory Rate 17 01/21/2025 8:37 PM EDT Oxygen Saturation 100% 01/21/2025 8:37 PM EDT Inhaled Oxygen Concentration - - Weight 74.8 kg (165 lb) 01/21/2025 8:37 PM EDT Height 182.9 cm (6') 01/21/2025 8:37 PM EDT Body Mass Index 22.38 01/21/2025 8:37 PM EDT Plan of Treatment Not on file Care Teams Staffing Mgr Relationship Specialty Start Date End Date Pcp, None, PCP - General Internal Medicine 01/21/25
--- OUTSIDE RECORDS SUMMARY | 2025-07-24 18:38 | XMS_ITS | Encounter Summary ---
Author Organization [facility] Address [address] [place] [address] Care Team Providers Care Community Relations Liaison Name Role Phone Og Silva MD Primary Care Provider [phone] James Hood MD Primary Care Provider [phone] Encounter Details Date Type Department Care Team (Late st Contact Info) Description 09/14/2023 Orders Only [place] [address] MD [address] [place] [address] Nausea after anesthesia, initial encounter (Primary Dx) Social History Tobacco Use Types Packs/Day Years Used Date Smoking Tobacco: Former Cigarettes Q uit: 07/02/2023 Smokeless Tobacco: Current Alcohol Use Standard Drinks/Week Comments Not Currently 0 (1 standard drink = 0.6 oz pur e alcohol) Recovery Comments No Sex and Gender Information Value Date Recorded Sex Assigned at Not on file Legal Sex Female 7:03 AM EST Gender Identity Female 10/28/2023 5:26 AM EST Sexual Orientation Bisexual 10/28/2023 5: 26 AM EST documented as of this encounter Progress Notes * Omid Lane MD - 09/14/2023 2:57 PM EST navyaan documented in this encounter Plan of Treatment Upcoming Encounters Date Type Department Care Team (Late st Contact Info) Description 11/21/2025 2:15 PM EST Office Visit [facility] [place] [address] documented as of this encounter Visit Diagnoses Diagnosis Nausea after anesthesia, initial encounter- Primary documented in this encounter Care Teams Community Relations Liaison Relationship Specialty Start Date End Date Og Silva MD PCP - General Hospitalist 03/16/23 04/28/25 James Hood MD [address] [place] [address] PCP - General Internal Medicine 04/29/25 documented as of this encounter
--- OUTSIDE RECORDS SUMMARY | 2025-07-24 18:38 | XMS_ITS | Encounter Summary ---
Author Organization [facility] Address [address] [place] [address] Care Team Providers Care Assistant Professor Of Life Sciences Name Role Phone Og Silva MD Primary Care Provider [phone] James Hood MD Primary Care Provider [phone] Reason for Visit * Reason Onset Date Comments Depression 09/03/2024 Encounter Details Date Type Department Care Team (Late st Contact Info) Description 09/03/2024 Telephone [facility] [address] [place] [address] Og Silva MD [address] [place] [id number] Depression Social History Tobacco Use Types Packs/Day Years Used Date Smoking Tobacco: Former Cigarettes Q uit: 07/02/2023 Smokeless Tobacco: Current Comments:Vaping daily Alcohol Use Standard Drinks/Week Comments Not Currently 0 (1 standard drink = 0.6 oz pur e alcohol) Recovery Comments No Sex and Gender Information Value Date Recorded Sex Assigned at Not on file Legal Sex Female 7:03 AM EST Gender Identity Female 10/28/2023 5:26 AM EST Sexual Orientation Bisexual 10/28/2023 5: 26 AM EST documented as of this encounter Miscellaneous Notes * Telephone Encounter - Ivone Dumont - 09/05/2024 2:34 PM EST 09/06 at 11:30am * Telephone Encounter - Ivone Dumotn - 09/04/2024 11:07 AM EST Patient will need a virtual appointment. * Telephone Encounter - Germania Osei NP - 09/03/2024 4:08 PM EST Spoke with the patient via telephone today. She states that she would like to schedule an appointment to discuss antidepressant medication, as she was taking one in the past and feels that it is time for her to go back on one. She reports that she is stable and denies suicidal ideation or homicidal ideation. Please schedule an appointment with the clinic for this patient. * Telephone Encounter - Germania Osei NP - 09/03/2024 2:07 PM EST Left the patient a telephone voicemail message requesting a call back to the clinic * Telephone Encounter - Shirley Trinidad - 09/03/2024 12:23 PM EST Patient lvm asking to make an apt for a mental health medication . Please advise documented in this encounter Plan of Treatment Upcoming Encounters Date Type Department Care Team (Late st Contact Info) Description 11/21/2025 2:15 PM EST Office Visit [facility] [place] [address] documented as of this encounter Visit Diagnoses Not on filedocumented in this encounter Care Teams Assistant Professor Of Life Sciences Relationship Specialty Start Date End Date Og Silva MD PCP - General Hospitalist 03/16/23 04/28/25 James Hood MD [facility] [place] [address] PCP - General Internal Medicine 04/29/25 documented as of this encounter
--- OUTSIDE RECORDS SUMMARY | 2025-07-24 18:38 | XMS_ITS | Clinical Summary ---
Author Organization [facility] Address [address] [place] [address] Care Team Providers Care Jig Grinder Name Role Phone Zandra Weiss MD Primary Care Provider Allergies Active Allergy Reactions Criticality Noted Date Comments Milk (Cow) GI Intolerance 09/27/2023 Lidocaine Rash Low 10/21/2022 Penicillins Rash Low 10/21/2022 Prednisone Rash Low 05/28/2024 Medications escitalopram 10 MG tablet Take 1 tablet (10 mg total) by mouth daily Active lamoTRIgine (LaMICtal) 100 MG tablet Take 1.5 tablets (150 mg total) by mouth daily Active ondansetron (ZOFRAN) 4 MG tablet Take 1 tablet (4 mg total) by mouth every 6 (six) hours as needed 4 07/23/20 25 Discontinued Active Problems Problem Noted Date Diagnosed Date Suicidal ideation 07/23/2025 Encounters Date Type Department Care Team Description 07/23/2025 4:38 PM EDT - 07/24/2025 4:44 PM EDT Hospital Encounter [facility] [address] [place] [id number] Cydney Newton MD Perry, Megan E, MD Malinconico, Lawrence M, MD Gallagher, Lauren P, MD Suicidal ideation (Primary Dx) Discharge Disposition: [facility] Hospital with Planned Readmission 07/23/2025 Travel from Last 3 Months Social History Tobacco Use Types Packs/Day Years Used Date Smoking Tobacco: Former Cigarettes Q uit: 07/2023 Smokeless Tobacco: Never Tobacco Cessation:Counseling Given: Not Answered Comments No Sex and Gender Information Value Date Recorded Sex Assigned at Female 07/23/2025 5:15 PM EDT Legal Sex Female 7:52 AM EDT Gender Identity Female 07/23/2025 5:15 PM EDT Sexual Orientation Straight 07/23/2025 5: 15 PM EDT Last Filed Vital Signs Vital Sign Reading Time Taken Comments Blood Pressure 121/78 07/24/2025 8:28 AM EDT Pulse 72 07/24/2025 8:28 AM EDT Temperature 36.3 C (97.4 F) 07/24/2025 2:05 AM EDT Respiratory Rate 16 07/24/2025 8:28 AM EDT Oxygen Saturation 99% 07/24/2025 8:28 AM EDT Inhaled Oxygen Concentration - - Weight 68 kg (150 lb) 09/25/2024 12:10 PM EST Height 182.9 cm (6') 09/25/2024 12:10 PM EST Body Mass Index 20.34 09/25/2024 12:10 PM EST Plan of Treatment Health Maintenance Due Date Last Done Comments Annual Physical 1993 Hepatitis B Screening 02/13/2008 DTaP,Tdap,and Td Vaccines (2 - Tdap) 12/11/2024 12/11/2014 COVID-19 Vaccine (2023-2 5 season) 2025 Influenza Vaccine (#1) 2025 HIB Vaccines Aged Out No longer eligi ble based on patient's age to complete this topic Hepatitis A Vaccine Aged Out No longe r eligible based on patient's age to complete this topic Pneumococcal Vaccines 0-49 y rs (includes High Risk) Aged Out No longer eligible based on patient's age to complete this topic Procedures Procedure Name Priority Date/Time Associated Diagnosis Comments ECG 12-LEAD STAT 07/24/2025 11:43 AM EDT TOXICOLOGY SCREEN, URINE (NON FCU) STAT 07/23/2025 5:55 PM EDT TOXICOLOGY SCREEN, URINE STAT 07/23/2025 5:55 PM EDT LIGHT BLUE TOP Routine 07/23/2025 4:54 PM EDT RED TOP Routine 07/23/2025 4:54 PM EDT EXTRA TUBES Routine 07/23/2025 4:54 PM EDT SALICYLATE LEVEL STAT 07/23/2025 4:54 PM EDT ACETAMINOPHEN LEVEL STAT 07/23/2025 4 :54 PM EDT ETHANOL STAT 07/23/2025 4:54 PM EDT COMPREHENSIVE METABOLIC PANEL STAT 07/23/2025 4:54 PM EDT CBC AND AUTO DIFFERENTIAL STAT 07/23/2025 4:54 PM EDT from Last 3 Months Results * ECG 12-LEAD (07/24/2025 11:43 AM EDT) Shonna Lanza MD - 07/24/2025 11:43 AM EDT Shonna Celeste MD 07/24/2025 11:44 AM EKG electrocardiogram Date/Time: 07/24/2025 11:43 AM Performed by: Shonna Celeste MD Authorized by: Shonna Celeste MD Measurements: BPM: 73 IL Duration: 108 ms Findings: Rate: normal Rhythm: [...] Detected None Detected 07/23/2025 7:29 PM EDT [facility] Barbiturates Qualitative, Ur None Detected None Detected 07/23/2025 7:29 PM EDT [facility] Benzodiazepines Qualitative, Ur None Detected None Detected 07/23/2025 7:29 PM EDT [facility] Methadone Qualitative, Ur None Detected None Detected 07/23/2025 7:29 PM EDT [facility] Opiates Qualitative, Ur None Detected None Detected 07/23/2025 7:29 PM EDT [facility] Cannabinoids Qualitative, Ur Detected(A) None Detected 07/23/2025 7:29 PM EDT [facility] Cocaine Qualitative, Ur None Detected None Detected 07/23/2025 7:29 PM EDT [facility] Oxycodone Qualitative Urine None Detected None Detected 07/23/2025 7:29 PM EDT [facility] Buprenorphine Qualitative Urine None Detected None Detected 07/23/2025 7:29 PM EDT [facility] Fentanyl Qualitative, Ur None Detected None Detected 07/23/2025 7:29 PM EDT [facility] Creatinine, Urine 91.0 20.0 - 400.0 mg/dL 07/23/2025 7:29 PM EDT [facility] Urine Collection / Unknown 07/23/2025 5:55 PM EDT 07/23/2025 7:01 PM EDT Narrative [facility] - 07/23/2025 7:29 PM EDT This [...] Emergency MD URINE ORDERABLES Fi nal Result [facility] [address] [place] [address] * Red Top (07/23/2025 4:54 PM EDT) Extra Tube Auto resulted. 07/23/2025 8:56 PM EDT [facility] Comment:Hold for add-ons. Blood 07/23/2025 4:54 PM EDT 07/23/2025 4:57 PM EDT Cydney Newton MD LAB BLOOD ORDERABLES Final Res ult Performing Organization Address [facility]/ZIP Co de Phone Number [facility] [address] [place] [phone] * Light Blue Top (07/23/2025 4:54 PM EDT) Extra Tube Auto resulted. 07/23/2025 8:56 PM EDT [facility] Comment:Hold for add-ons. Blood 07/23/2025 4:54 PM EDT 07/23/2025 4:57 PM EDT Cydney Newton MD LAB BLOOD ORDERABLES Final Res ult Performing Organization Address City/[facility]/ZIP Co de Phone Number [facility] [address] [place] [phone] * CBC and Auto Differential (07/23/2025 4:54 PM EDT) WBC 7.4 4.8 - 11.2 10*3/ L 07/23/2025 5:04 PM EDT [facility] RBC 3.86 3.60 - 5.40 10*6/ L 07/23/2025 5:04 PM EDT [facility] HGB 12.2 12.0 - 15.8 g/dL 07/23/2025 5:04 PM EDT [facility] HCT 36.5 36.0 - 48.0 % 07/23/2025 5:04 PM EDT [facility] MCV 94.6 82.0 - 98.0 fL 07/23/2025 5:04 PM EDT [facility] MCH 31.6 27.0 - 35.0 pg 07/23/2025 5:04 PM EDT [facility] MCHC 33.4 32.0 - 37.0 g/dL 07/23/2025 5:04 PM EDT [facility] RDW 12.5 12.0 - 15.0 % 07/23/2025 5:04 PM EDT [facility] PLT 300 150 - 400 10*3/ L 07/23/2025 5:04 PM EDT [facility] MPV 9.0 7.0 - 14.0 fL 07/23/2025 5:04 PM EDT [facility] Neut % 61.8 45.0 - 85.0 % 07/23/2025 5:04 PM EDT [facility] Immature Granulocytes % 0.3 0 - 5.0 % 07/23/2025 5:04 PM EDT [facility] Lymph % 29.5 15.0 - 45.0 % 07/23/2025 5:04 PM EDT [facility] [place] % 6.1 0.0 - 12.0 % 07/23/2025 5:04 PM EDT [facility] Eos % 0.9 0.0 - 7.0 % 07/23/2025 5:04 PM EDT [facility] Baso % 1.4 0.0 - 3.0 % 07/23/2025 5:04 PM EDT [facility] NRBC% 0 0 /100 WBC /100 WBC 07/23/2025 5:04 PM EDT [facility] Neut # 4.6 2.2 - 9.5 10*3/ L 07/23/2025 5:04 PM EDT [facility] Immature Granulocytes Absolute 0.02 0.00 - 0.56 10*3/ L 07/23/2025 5:04 PM EDT [facility] Lym # 2.2 0.7 - 5.0 10*3/ L 07/23/2025 5:04 PM EDT [facility] [place] # 0.5 0.0 - 1.3 10*3/ L 07/23/2025 5:04 PM EDT [facility] Eos # 0.1 0.0 - 0.4 10*3/ L 07/23/2025 5:04 PM EDT [facility] Baso # 0.1 0.0 - 0.3 10*3/ L 07/23/2025 5:04 PM EDT [facility] Blood Venipuncture / Unknown 07/23/2025 4:54 PM EDT 07/23/2025 4:54 PM EDT us Triage Protocol Emergency MD LAB BLOOD ORDERABLE S Final Result Performing Organization Address [facility] de Phone Number [facility] [address] [place] [phone] * Ethanol (07/23/2025 4:54 PM EDT) Ethanol Lvl <3 <10 mg/dL 07/23/2025 5:18 PM EDT [facility] Blood Venipuncture / Unknown 07/23/2025 4:54 PM EDT 07/23/2025 4:54 PM EDT us Triage Protocol Emergency MD LAB BLOOD ORDERABLE S Final Result Performing Organization Address [facility] de Phone Number [facility] [address] [place] [phone] * (ABNORMAL) Acetaminophen level (07/23/2025 4:54 PM EDT) Acetaminophen Level <2(L) 10 - 20 ug/mL 07/23/2025 5:18 PM EDT [facility] Blood Venipuncture / Unknown 07/23/2025 4:54 PM EDT 07/23/2025 4:54 PM EDT us Triage Protocol Emergency MD LAB BLOOD ORDERABLE S Final Result Performing Organization Address [facility] Co de Phone Number [facility] [address] [place] [phone] * Salicylate level (07/23/2025 4:54 PM EDT) Salicylate <3.0 <30.0 mg/dL 07/23/2025 5:18 PM EDT [facility] Blood Venipuncture / Unknown 07/23/2025 4:54 PM EDT 07/23/2025 4:54 PM EDT us Triage Protocol Emergency MD LAB BLOOD ORDERABLE S Final Result [facility] [address] [place] [address] * (ABNORMAL) Comprehensive metabolic panel (07/23/2025 4:54 PM EDT) Pathologist [facility] Sodium 140 136 - 145 mEq/L 07/23/2025 5:17 PM EDT [facility] Potassium 3.6 3.5 - 5.1 mEq/L 07/23/2025 5:17 PM EDT [facility] Chloride 111(H) 98 - 109 mEq/L 07/23/2025 5:17 PM EDT [facility] CO2 24 20 - 31 mEq/L 07/23/2025 5:17 PM EDT [facility] Anion Gap 5 4 - 15 mEq/L 07/23/2025 5:17 PM EDT [facility] Glucose 86 70 - 100 mg/dL 07/23/2025 5:17 PM EDT [facility] Creatinine 0.74 0.50 - 1.00 mg/dL 07/23/2025 5:17 PM EDT [facility] eGFR (Female) >60 60 - 115 mL/min 07/23/2025 5:17 PM EDT [facility] BUN 10 9 - 23 mg/dL 07/23/2025 5:17 PM EDT [facility] Calcium 9.2 8.3 - 10.6 mg/dL 07/23/2025 5:17 PM EDT [facility] Total Protein 7.2 5.7 - 8.2 g/dL 07/23/2025 5:17 PM EDT [facility] Albumin 4.3 3.2 - 4.8 g/dL 07/23/2025 5:17 PM EDT [facility] A/G Ratio 1.5 1.0 - 2.3 07/23/2025 5:17 PM EDT [facility] Total Bilirubin 0.4 0.2 - 1.0 mg/dL 07/23/2025 5:17 PM EDT [facility] AST 19 13 - 40 U/L 07/23/2025 5:17 PM EDT [facility] Alkaline Phosphatase 56 46 - 116 IU/L 07/23/2025 5:17 PM EDT [facility] ALT 19 7 - 40 U/L 07/23/2025 5:17 PM EDT [facility] Blood Venipuncture / Unknown 07/23/2025 4:54 PM EDT 07/23/2025 4:54 PM EDT Narrative [facility] - 07/23/2025 5:17 PM EDT Calculation based on the Chronic Kidney Disease Epidemiology Collaboration (CKD- EPI) equation refit without adjustment for race. us Triage Protocol Emergency MD LAB BLOOD ORDERABLE S Final Result Performing Organization Address City/State/[facility] Co de Phone Number [facility] [address] [place] [address] from Last 3 Months Insurance MEDICA[employer] OTHER BILL TO EMPLOYER Care Teams Jig Grinder Relationship Specialty Start Date End Date Zandra Weiss MD [address] [place] [address] [address], [address] [address] PCP - General Internal Medicine 05/28/24
[2025-07-24 18:55] VITALS: BP 125/89; PULSE 63; RESP 16; TEMP 36.6; BMI 22.3
--- NOTE | 2025-07-24 19:23 | PC.NURSE ---
Ms. Jasmin Montenegro arrived via stretcher at 6:44pm from [facility] in [place] and was admitted to [facility]. Provider Mariela Pollock notified. Skin/ safety check completed and was unremarkable. Vitals and weight checked and entered. Admitting diagnoses include MDD and RUKHSANA. Prior to admission she had been suicidal with a plan to walk into the ocean or slit her wrists. Upon arrival she denied SI-HI-AVH and impulses to self harm. She is a current smoker of approximately a half pack daily and would like NRT. She declined [employer]. She reports that she rarely drinks alcohol and does not use other substances except marijuana. She has a history of heroin abuse but has been clean since 2013. She said she lives with her , her girlfriend and her girlfriend's 18 month old child. Jasmin described their relationship as polyamorous. She is employed at a [employer] in [place]. One recent precipitant was recently finding a packet of heroin in an item of clothing at work. This triggered her but she did not use it. Jasmin was given a tour of the unit and given sandwiches and fruit for dinner as it was past the hours for the kitchen to send up a meal. Menu was completed for tomorrow. JEAN-CLAUDE Schuster will be up to sign her in or to sign a 12B. Safety checks q 15 minutes. Admission Risk Assessment completed but Admission assessment and remaining admission items will be completed by a night RN.
--- NOTE | 2025-07-24 23:38 | PM.EVENT ---
Event Note Date of Service: 07/24/25 Event Note: Patient is a 35-year-old female with a past medical history significant for MDD, RUKHSANA, history heroin use (sober times 11 years), tobacco use disorder and marijuana use, admitted from [facility] due to SI, currently on M[facility] adult Psychiatry. Hospitalist consult was placed for medical H and P, patient declines. She denies any chest pain, shortness of breath, nausea, vomiting, abdominal pain or any medical concerns currently. She does not feel she needs a medical consultation and declines any further consultations from us at this time. Thank you for allowing me to participate in the pt's care. Please contact the medical team if any questions or concerns. Time Spent With Patient Time: Total time managing care of this patient today ____ minutes.
--- NOTE | 2025-07-24 23:47 | PC.ADMIT ---
Pt was A&O X4, pleasant and calm on approach. She is isolative to room and withdrawn to self. She denies SI/HI/AV/VH, denies any psych symptoms. She declined to participate or complete the the admission procedure. She states I just want my bedtime meds and sleep tonight, I will do everything tomorrow morning . Pt did not fill or sign any admission paper work/release of information but only signed a CV. She took her HS meds slept off. Treatment plans and safety tools initiated.
[2025-07-25 08:17] VITALS: BP 135/64; PULSE 79; RESP 16; TEMP 36.8; O2SAT 98
[2025-07-25 08:32] LABS: Alanine Aminotransferase 19 U/L (0-31); Albumin Level 4.4 g/dL (3.5-5.0); Alkaline Phosphatase 55 U/L (39-117); Anion Gap 9 (12-20); Aspartate Amino Transferase 26 U/L (5-31); Blood Urea Nitrogen 17 mg/dL (9-16); Calcium 9.3 mg/dL (8.4-10.2); Carbon Dioxide 25 mmol/L (22-29); Chloride 114 mmol/L (96-108); Cholesterol 127 mg/dL (<200); Creatinine Clr Calc Pharmacy 119.2; Estimated Glomerular Filt Rate > 60; HDL Cholesterol 38 mg/dL (>40); Potassium 4.3 mmol/L (3.3-5.1); Sodium 144 mmol/L (135-145); Total Protein 6.7 g/dL (6.5-8.0); Triglycerides 64 mg/dL (<150)
[2025-07-25 08:49] LABS: Free T4 (Free Thyroxine) 1.11 ng/dL (0.71-1.85)
[2025-07-25 08:52] LABS: Vitamin B12 867 pg/mL (200-900)
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
[2025-07-25 09:20] VITALS: BMI 22.4
[2025-07-25 10:34] LABS: Hemoglobin A1C 96.0804 umol/L; Total Hemoglobin (HGBA1C) 3147.9475 umol/L
[2025-07-25] MEDS: Nicotine 21 MG PATCH.TD24 TRANSDERMA (10:41)
[2025-07-25 20:00] VITALS: BP 116/67; PULSE 71; RESP 16; TEMP 36.6; O2SAT 100
[2025-07-26 08:22] VITALS: BP 110/57; PULSE 77; RESP 16; TEMP 36.3; O2SAT 97
[2025-07-26] MEDS: Nicotine 21 MG PATCH.TD24 TRANSDERMA (08:24)
--- NOTE | 2025-07-26 09:41 | P.PNPSI_ITS ---
Subjective Subjective Date of Service: 07/26/25 Reason For Visit: MDD, RUKHSANA Interim History: met with patient; discussed with team; reviewed chart pt shared that since 2 weeks ago, when her youngest daughter attempted suicide. Pt shared struggle with having her kids living w/ her ex-husbands parents...says she knows that when she's emotionally overwhelmed she can't be helpful to her kids and this past weeks she felt hopeless. Today, she reports feeling better and that she woke up for first time in 2 weeks, hopeful and feeing more her regular self. Slept well no side-effects from increased; discussed meds and she agrees to try intuniv for ADD symptoms and daytime anxiety; will also try clonidine prn (reviewed risks/side-effects). Mental Status Exam Mental Status Exam Narrative: Pt is alert and oriented; behavior is cooperative, friendly and calm; patient is not in distress; dressed in casual attire with unkempt hair but adequate hygiene; mood is described as better and affect congruent; eye contact appropriate; Speech is normal rate, volume and prosody and not pressured; no psychomotor agitation/retardation present; thought process is organized and goal directed; Thought content is on tx; otherwise pertinent to relevant topics and without any delusional content, paranoid ideations or grandiosity; denies any SI/HI. Denies AVH and there is no evidence of perceptual disturbance. Patients insight and judgment appear intact. Diagnostics Vital Signs (24Hr): Vital Signs - 24 hr 07/25/25 20:00 07/26/25 08:22 Temperature 97.8 F 97.3 F Pulse Rate 71 77 Respiratory Rate 16 16 Blood Pressure 116/67 110/57 L Pulse Oximetry 100 97 Oxygen Delivery Method Room Air Room Air BMI result Body Mass Index 22.4 Labs 07/25/25 07:57 Labs: Laboratory Results - last 48 hr 07/25/25 07:57 Sodium 144 Potassium 4.3 Chloride 114 H Carbon Dioxide 25 Anion Gap 9 L BUN 17 H Creatinine 0.76 Estim Creat Clear Calc 119.2 Estimated GFR > 60 Random Glucose 118 H Estimat Average Glucose 94 Hemoglobin A1c % 4.9 Calcium 9.3 Total Bilirubin 0.4 AST 26 ALT 19 Alkaline Phosphatase 55 Total Protein 6.7 Albumin 4.4 Triglycerides 64 Cholesterol 127 LDL Cholesterol, Calc 77 HDL Cholesterol 38 L Vitamin B12 867 Free T4 1.11 Medications Medications Current Medications Acetaminophen (Acetaminophen 325 Mg Tablet) 650 mg PO Q6H PRN PRN Reason: Headache/Pain, Scale 1-10 Last Admin: 07/25/25 13:24 Dose: 650 mg Al Hydroxide/Mg Hydroxide (Magnesium Hydrox/Alum Hydrox 30 Ml Oral.Susp) 30 ml PO Q6H PRN PRN Reason: Heartburn/Nausea Escitalopram Oxalate (Escitalopram Oxalate 20 Mg Tablet) 20 mg PO BEDTIME [facility] Last Admin: 07/25/25 20:37 Dose: 20 mg Hydroxyzine HCl (Hydroxyzine Hcl 25 Mg Tablet) 25 mg PO Q6H PRN PRN Reason: mild anxiety Lamotrigine (Lamotrigine 100 Mg Tablet) 200 mg PO DAILY [facility] Last Admin: 07/26/25 08:23 Dose: 200 mg Magnesium Hydroxide (Milk Of Magnesia 30 Ml Oral.Susp) 30 ml PO DAILY PRN PRN Reason: Constipation Nicotine (Nicotine 21 Mg Patch.Td24) 21 mg TRANSDERMA DAILY [facility] Last Admin: 07/26/25 08:24 Dose: 21 mg Nicotine Polacrilex (Nicotine Polacrilex 2 Mg Gum) 2 mg BUCCAL Q2H PRN PRN Reason: Nicotine Cravings Last Admin: 07/25/25 08:42 Dose: 2 mg Olanzapine (Olanzapine 5 Mg Tablet) 5 mg PO BID PRN PRN Reason: agitation Ondansetron HCl (Ondansetron Odt 4 Mg Tab.Rapdis) 4 mg TRANSLINGU Q8H PRN PRN Reason: Nausea and Vomiting Last Admin: 07/26/25 08:47 Dose: 4 mg Trazodone HCl (Trazodone Hcl 50 Mg Tablet) 50 mg PO BEDTIME MRX1 PRN PRN Reason: Insomnia Allergies Allergies Allergy/AdvReac Type Severity Reaction Status Date / Time Milk Containing Products Allergy Intermediate Stomach Verified 07/24/25 20:06 (Dairy) Upset Penicillins Allergy Intermediate itching Verified 07/24/25 20:05 prednisone Allergy Intermediate Itching Verified 07/24/25 20:05 Assessment & Plan Assessment & Plan (1) Bipolar disorder: Status: Acute Code(s): F31.9 - Bipolar disorder, unspecified (2) Suicide ideation: Status: Resolved Code(s): R45.851 - Suicidal ideations (3) Cannabis use disorder: Status: Acute Code(s): F12.90 - Cannabis use, unspecified, uncomplicated Plan 35-year-old female with history of anxiety, depression, PTSD, and bipolar disorder, is a transfer from [facility] yesterday [place] [facility] [place] with a plan. On interview with his provider, patient notes that two days ago, I lost it a little bit at work. While working, she suddenly started experienced suicide ideation with a plan to walk in an ocean and never return. She immediately went to crisis and was transferred to [facility]. She denies stating she would to slit her wrist. She states she does not know the reason for her suicide thoughts. However, she notes that the past one week has been a rough. Her biological daughter attempted suicide last week; she does not want to elaborate on that, but states she is home with her grandparents. She has three daughters and one of them by adoption. All three children live with the parents of her former . Patient states she has full custody of her children but their grandparents do not allow her to contact them. She states that she ends up being psychiatrically admitted every time something bad happens to my children; It usually takes 3-4 days for her to reset and discharge. She has been living with her partner for the past 3 years and he has been supportive. She has been on Lexapro 10 mg daily at bedtime and lamotrigine 150 mg daily in the morning for the past 18 months and admits to taking as prescribed. Before the past one week, her mood has otherwise been stable and at baseline; she experienced slight changes in mood which she states was situational. She drinks 1-2 glasses of alcoholic beverage yearly, smokes 3-4 bowls of cannabis daily and consumes 10 mg or THC gummies nightly. 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 She currently anxiety or depression. She denies SI/HI/AH/VH. She signed a 3 day noticed yesterday and looking forward to return home when the 3 day notice . Formulation/Clinical reasoning: Bipolar disorder: Likely dysregulated due to psychosocial stressors and excessive cannabis use. She currently denies anxiety or depression. She denies SI/HI/AH/VH. No evidence of yuniel or hypomania. She is willing to have Lexapro increased to 20 mg daily and lamotrigine increased to 200 mg daily; will increase both. Instructed that excessive cannabis can cause or worsen psychiatric symptoms and advised to cut down or avoid use. Continue current treatment regimen. Verbalized understanding and agreed with the plan. Hospital Course: 07/26 pt shared that since 2 weeks ago, when her youngest daughter attempted suicide. Pt shared struggle with having her kids living w/ her ex-husbands parents...says she knows that when she's emotionally overwhelmed she can't be helpful to her kids and this past weeks she felt hopeless. Today, she reports feeling better and that she woke up for first time in 2 weeks, hopeful and feeing more her regular self. Slept well no side-effects from increased; discussed meds and she agrees to try intuniv for ADD symptoms and daytime anxiety; will also try clonidine prn (reviewed risks/side-effects). Plan Admit to M5. 3 day 15 minutes check. Continue Lexapro 20 mg recently increased Continue Lamictal 200 mg recently increased Start Intuniv 1 mg daily Added clonidine p.r.n. Collateral contact. Continue remainder of regime. Encouraged full milieu. Discharge planning. Escitalopram increased to 20 mg QHS and lamotrigine increased to 200 mg daily. Patient educated on: diagnosis, medication risk/benefits and therapeutic strategies Informed Consent: understands Reason for continued inpatient stay Substantial Risk for: stable for discharge, rapid decompensation and med/psych decompensation Time Spent With Patient Time: Total time managing care of this patient today ____ minutes.
[2025-07-26] MEDS: guanFACINE HCl ER 1 MG TAB.ER.24H PO (12:50)
[2025-07-26 20:00] VITALS: BP 106/60; PULSE 79; RESP 15; TEMP 36; O2SAT 97
--- NOTE | 2025-07-27 07:41 | P.PNPSI_ITS ---
Subjective Subjective Date of Service: 07/27/25 Reason For Visit: MDD, RUKHSANA Subjective Notes: 3 Day Healthcare Proxy: No Guardianship: No Medical Problems Affecting Mental Status: No Interim History: 35 yo feeling better, sleeping- guanfacine er helping her head feel less foggy and more focused- denying si/hi, and letting go of what she doesn't have control of with what is going on with daugther- Medication Compliance: Yes Side effects from medications: No Attending Groups: Yes Review of Systems Acute medical concerns: No Medical Review of Systems: unchanged Mental Status Exam Mental Status Exam Patient Appearance: Well Grooomed (younger than age appearance) Patient Orientation: Person, Place, Time and Situation Level of Consciousness: Awake Patient Behavior: Appropriate, Talkative and Cooperative Mood Description: Happy Affect Description: Relaxed Patient Cognition Impaired: No Ability to Follow Directions: Fair Speech Pattern: Clear Thought Process: Intact and Goal Oriented Thought Content: positive for Intact (denies further si - ) Judgement: Fair Diagnostics Vital Signs (24Hr): Vital Signs - 24 hr 07/26/25 08:22 07/26/25 20:00 Temperature 97.3 F 96.8 F Pulse Rate 77 79 Respiratory Rate 16 15 Blood Pressure 110/57 L 106/60 Pulse Oximetry 97 97 Oxygen Delivery Method Room Air BMI result Body Mass Index 22.4 Labs 07/25/25 07:57 Labs: Laboratory Results - last 48 hr 07/25/25 07:57 Sodium 144 Potassium 4.3 Chloride 114 H Carbon Dioxide 25 Anion Gap 9 L BUN 17 H Creatinine 0.76 Estim Creat Clear Calc 119.2 Estimated GFR > 60 Random Glucose 118 H Estimat Average Glucose 94 Hemoglobin A1c % 4.9 Calcium 9.3 Total Bilirubin 0.4 AST 26 ALT 19 Alkaline Phosphatase 55 Total Protein 6.7 Albumin 4.4 Triglycerides 64 Cholesterol 127 LDL Cholesterol, Calc 77 HDL Cholesterol 38 L Vitamin B12 867 Free T4 1.11 Medications Medications Current Medications Acetaminophen (Acetaminophen 325 Mg Tablet) 650 mg PO Q6H PRN PRN Reason: Headache/Pain, Scale 1-10 Last Admin: 07/25/25 13:24 Dose: 650 mg Al Hydroxide/Mg Hydroxide (Magnesium Hydrox/Alum Hydrox 30 Ml Oral.Susp) 30 ml PO Q6H PRN PRN Reason: Heartburn/Nausea Clonidine HCl (Clonidine Hcl 0.1 Mg Tablet) 0.1 mg PO Q4H PRN; Protocol PRN Reason: moderate anxiety Escitalopram Oxalate (Escitalopram Oxalate 20 Mg Tablet) 20 mg PO BEDTIME [facility] Last Admin: 07/26/25 20:47 Dose: 20 mg Guanfacine HCl (Guanfacine Hcl Er 1 Mg Tab.Er.24h) 1 mg PO DAILY [facility] Last Admin: 07/26/25 12:50 Dose: 1 mg Hydroxyzine HCl (Hydroxyzine Hcl 25 Mg Tablet) 25 mg PO Q6H PRN PRN Reason: mild anxiety Lamotrigine (Lamotrigine 100 Mg Tablet) 200 mg PO DAILY [facility] Last Admin: 07/26/25 08:23 Dose: 200 mg Magnesium Hydroxide (Milk Of Magnesia 30 Ml Oral.Susp) 30 ml PO DAILY PRN PRN Reason: Constipation Nicotine (Nicotine 21 Mg Patch.Td24) 21 mg TRANSDERMA DAILY [facility] Last Admin: 07/26/25 08:24 Dose: 21 mg Nicotine Polacrilex (Nicotine Polacrilex 2 Mg Gum) 2 mg BUCCAL Q2H PRN PRN Reason: Nicotine Cravings Last Admin: 07/26/25 17:43 Dose: 2 mg Olanzapine (Olanzapine 5 Mg Tablet) 5 mg PO BID PRN PRN Reason: agitation Ondansetron HCl (Ondansetron Odt 4 Mg Tab.Rapdis) 4 mg TRANSLINGU Q8H PRN PRN Reason: Nausea and Vomiting Last Admin: 07/26/25 17:09 Dose: 4 mg Trazodone HCl (Trazodone Hcl 50 Mg Tablet) 50 mg PO BEDTIME MRX1 PRN PRN Reason: Insomnia Allergies Allergies Allergy/AdvReac Type Severity Reaction Status Date / Time Milk Containing Products Allergy Intermediate Stomach Verified 07/24/25 20:06 (Dairy) Upset Penicillins Allergy Intermediate itching Verified 07/24/25 20:05 prednisone Allergy Intermediate Itching Verified 07/24/25 20:05 Assessment & Plan Assessment & Plan (1) Bipolar disorder: Status: Acute Code(s): F31.9 - Bipolar disorder, unspecified (2) Suicide ideation: Status: Resolved Code(s): R45.851 - Suicidal ideations (3) Cannabis use disorder: Status: Acute Code(s): F12.90 - Cannabis use, unspecified, uncomplicated Plan 35-year-old female with history of anxiety, depression, PTSD, and bipolar disorder, is a transfer from [facility] yesterday to [facility] for SI with a plan. On interview with his provider, patient notes that two days ago, I lost it a little bit at work. While working, she suddenly started experienced suicide ideation with a plan to walk in an ocean and never return. She immediately went to crisis and was transferred to [facility]. She denies stating she would to slit her wrist. She states she does not know the reason for her suicide thoughts. However, she notes that the past one week has been a rough. Her biological daughter attempted suicide last week; she does not want to elaborate on that, but states she is home with her grandparents. She has three daughters and one of them by adoption. All three children live with the parents of her former . Patient states she has full custody of her children but their grandparents do not allow her to contact them. She states that she ends up being psychiatrically admitted every time something bad happens to my children; It usually takes 3-4 days for her to reset and discharge. She has been living with her partner for the past 3 years and he has been supportive. She has been on Lexapro 10 mg daily at bedtime and lamotrigine 150 mg daily in the morning for the past 18 months and admits to taking as prescribed. Before the past one week, her mood has otherwise been stable and at baseline; she experienced slight changes in mood which she states was situational. She drinks 1-2 glasses of alcoholic beverage yearly, smokes 3-4 bowls of cannabis daily and consumes 10 mg or THC gummies nightly. 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 She currently anxiety or depression. She denies SI/HI/AH/VH. She signed a 3 day noticed yesterday and looking forward to return home when the 3 day notice . Formulation/Clinical reasoning: Bipolar disorder: Likely dysregulated due to psychosocial stressors and excessive cannabis use. She currently denies anxiety or depression. She denies SI/HI/AH/VH. No evidence of yuniel or hypomania. She is willing to have Lexapro increased to 20 mg daily and lamotrigine increased to 200 mg daily; will increase both. Instructed that excessive cannabis can cause or worsen psychiatric symptoms and advised to cut down or avoid use. Continue current treatment regimen. Verbalized understanding and agreed with the plan. Hospital Course: 07/26 pt shared that since 2 weeks ago, when her youngest daughter attempted suicide. Pt shared struggle with having her kids living w/ her ex-husbands parents...says she knows that when she's emotionally overwhelmed she can't be helpful to her kids and this past weeks she felt hopeless. Today, she reports feeling better and that she woke up for first time in 2 weeks, hopeful and feeing more her regular self. Slept well no side-effects from increased; discussed meds and she agrees to try intuniv for ADD symptoms and daytime anxiety; will also try clonidine prn (reviewed risks/side-effects). 07/27 - continues to feel improved- CTP Plan Admit to M5. 3 day 15 minutes check. Continue Lexapro 20 mg recently increased Continue Lamictal 200 mg recently increased Start Intuniv 1 mg daily Added clonidine p.r.n. Collateral contact. Continue remainder of regime. Encouraged full milieu. Discharge planning. Escitalopram increased to 20 mg QHS and lamotrigine increased to 200 mg daily. Patient educated on: medication risk/benefits and therapeutic strategies Informed Consent: understands Reason for continued inpatient stay Substantial Risk for: rapid decompensation Time Spent With Patient Time: Total time managing care of this patient today ____ minutes.
[2025-07-27 08:00] VITALS: BP 127/63; PULSE 84; RESP 18; TEMP 36; O2SAT 98
[2025-07-27] MEDS: guanFACINE HCl ER 1 MG TAB.ER.24H PO (08:39)
[2025-07-27] MEDS: Nicotine 21 MG PATCH.TD24 TRANSDERMA ×2 (10:29→10:30)
[2025-07-27 19:52] VITALS: BP 104/55; PULSE 82; RESP 15; TEMP 36.9; O2SAT 98
--- NOTE | 2025-07-28 08:15 | HO.PSYCHPN ---
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 Slept 8 hrs, but was feeling triggered last pm by noise on unit- Medication Compliance: Yes Side effects from medications: No Attending Groups: Yes Review of Systems Acute medical concerns: No Mental Status Exam Mental Status Exam Patient Appearance: Bizarre (just odd for her age- attire and hair style ) Patient Orientation: Person, Place, Time and Situation Level of Consciousness: Awake Patient Behavior: Appropriate, Talkative, Hyperactive, Invasion - Personal Space (? other patients doing their hair though they seem pleased) and Good Eye Contact Mood Description: Happy Affect Description: Calm (expanded a bit) Patient Cognition Impaired: No Ability to Follow Directions: Fair (I believe had been told not to touch other patients- ) Speech Pattern: Clear Hallucinations: None Delusions: Not Present Thought Process: Distracted Thought Content: positive for Racing (?) Judgement: Fair Diagnostics Vital Signs (24Hr): Vital Signs - 24 hr 07/27/25 19:52 Temperature 98.4 F Pulse Rate 82 Respiratory Rate 15 Blood Pressure 104/55 L Pulse Oximetry 98 BMI result Body Mass Index 22.4 Labs 07/25/25 07:57 Medications Medications Current Medications Acetaminophen (Acetaminophen 325 Mg Tablet) 650 mg PO Q6H PRN PRN Reason: Headache/Pain, Scale 1-10 Last Admin: 07/25/25 13:24 Dose: 650 mg Al Hydroxide/Mg Hydroxide (Magnesium Hydrox/Alum Hydrox 30 Ml Oral.Susp) 30 ml PO Q6H PRN PRN Reason: Heartburn/Nausea Clonidine HCl (Clonidine Hcl 0.1 Mg Tablet) 0.1 mg PO Q4H PRN; Protocol PRN Reason: moderate anxiety Escitalopram Oxalate (Escitalopram Oxalate 20 Mg Tablet) 20 mg PO BEDTIME [facility] Last Admin: 07/27/25 20:28 Dose: 20 mg Guanfacine HCl (Guanfacine Hcl Er 1 Mg Tab.Er.24h) 1 mg PO DAILY [facility] Last Admin: 07/27/25 08:39 Dose: 1 mg Hydroxyzine HCl (Hydroxyzine Hcl 25 Mg Tablet) 25 mg PO Q6H PRN PRN Reason: mild anxiety Lamotrigine (Lamotrigine 100 Mg Tablet) 200 mg PO DAILY [facility] Last Admin: 07/27/25 08:40 Dose: 200 mg Magnesium Hydroxide (Milk Of Magnesia 30 Ml Oral.Susp) 30 ml PO DAILY PRN PRN Reason: Constipation Nicotine (Nicotine 21 Mg Patch.Td24) 21 mg TRANSDERMA DAILY [facility] Last Admin: 07/27/25 10:30 Dose: 21 mg Nicotine Polacrilex (Nicotine Polacrilex 2 Mg Gum) 2 mg BUCCAL Q2H PRN PRN Reason: Nicotine Cravings Last Admin: 07/26/25 17:43 Dose: 2 mg Olanzapine (Olanzapine 5 Mg Tablet) 5 mg PO BID PRN PRN Reason: agitation Last Admin: 07/27/25 21:34 Dose: 5 mg Ondansetron HCl (Ondansetron Odt 4 Mg Tab.Rapdis) 4 mg TRANSLINGU Q8H PRN PRN Reason: Nausea and Vomiting Last Admin: 07/27/25 17:19 Dose: 4 mg Trazodone HCl (Trazodone Hcl 50 Mg Tablet) 50 mg PO BEDTIME MRX1 PRN PRN Reason: Insomnia Allergies Allergies Allergy/AdvReac Type Severity Reaction Status Date / Time Milk Containing Products Allergy Intermediate Stomach Verified 07/24/25 20:06 (Dairy) Upset Penicillins Allergy Intermediate itching Verified 07/24/25 20:05 prednisone Allergy Intermediate Itching Verified 07/24/25 20:05 Assessment & Plan Assessment & Plan (1) Bipolar disorder: Status: Acute Code(s): F31.9 - Bipolar disorder, unspecified (2) Suicide ideation: Status: Resolved Code(s): R45.851 - Suicidal ideations (3) Cannabis use disorder: Status: Acute Code(s): F12.90 - Cannabis use, unspecified, uncomplicated Plan 35-year-old female with history of anxiety, depression, PTSD, and bipolar disorder, is a transfer from [facility] yesterday to [facility] for SI with a plan. On interview with his provider, patient notes that two days ago, I lost it a little bit at work. While working, she suddenly started experienced suicide ideation with a plan to walk in an ocean and never return. She immediately went to crisis and was transferred to [facility]. She denies stating she would to slit her wrist. She states she does not know the reason for her suicide thoughts. However, she notes that the past one week has been a rough. Her biological daughter attempted suicide last week; she does not want to elaborate on that, but states she is home with her grandparents. She has three daughters and one of them by adoption. All three children live with the parents of her former . Patient states she has full custody of her children but their grandparents do not allow her to contact them. She states that she ends up being psychiatrically admitted every time something bad happens to my children; It usually takes 3-4 days for her to reset and discharge. She has been living with her partner for the past 3 years and he has been supportive. She has been on Lexapro 10 mg daily at bedtime and lamotrigine 150 mg daily in the morning for the past 18 months and admits to taking as prescribed. Before the past one week, her mood has otherwise been stable and at baseline; she experienced slight changes in mood which she states was situational. She drinks 1-2 glasses of alcoholic beverage yearly, smokes 3-4 bowls of cannabis daily and consumes 10 mg or THC gummies nightly. 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 She currently anxiety or depression. She denies SI/HI/AH/VH. She signed a 3 day noticed yesterday and looking forward to return home when the 3 day notice . Formulation/Clinical reasoning: Bipolar disorder: Likely dysregulated due to psychosocial stressors and excessive cannabis use. She currently denies anxiety or depression. She denies SI/HI/AH/VH. No evidence of yuniel or hypomania. She is willing to have Lexapro increased to 20 mg daily and lamotrigine increased to 200 mg daily; will increase both. Instructed that excessive cannabis can cause or worsen psychiatric symptoms and advised to cut down or avoid use. Continue current treatment regimen. Verbalized understanding and agreed with the plan. Hospital Course: 07/26 pt shared that since 2 weeks ago, when her youngest daughter attempted suicide. Pt shared struggle with having her kids living w/ her ex-husbands parents...says she knows that when she's emotionally overwhelmed she can't be helpful to her kids and this past weeks she felt hopeless. Today, she reports feeling better and that she woke up for first time in 2 weeks, hopeful and feeing more her regular self. Slept well no side-effects from increased; discussed meds and she agrees to try intuniv for ADD symptoms and daytime anxiety; will also try clonidine prn (reviewed risks/side-effects). 07/27 - continues to feel improved- CTP 07/28 seems hypomanic but sleeping some inapp boundaries- denying sys Plan Admit to M5. 3 day 15 minutes check. Continue Lexapro 20 mg recently increased Continue Lamictal 200 mg recently increased Start Intuniv 1 mg daily Added clonidine p.r.n. Collateral contact. Continue remainder of regime. Encouraged full milieu. Discharge planning. Escitalopram increased to 20 mg QHS and lamotrigine increased to 200 mg daily. Reason for continued inpatient stay Substantial Risk for: rapid decompensation Time Spent With Patient Time: Total time managing care of this patient today ____ minutes.
[2025-07-28] MEDS: Nicotine 21 MG PATCH.TD24 TRANSDERMA (08:19)
[2025-07-28] MEDS: guanFACINE HCl ER 1 MG TAB.ER.24H PO (08:19)
[2025-07-28 19:40] VITALS: BP 103/69; PULSE 113; RESP 16; TEMP 36.6; O2SAT 99
[2025-07-29 07:49] VITALS: BP 122/58; PULSE 62; TEMP 35.9; O2SAT 98
[2025-07-29] MEDS: Nicotine 21 MG PATCH.TD24 TRANSDERMA (08:28)
[2025-07-29] MEDS: guanFACINE HCl ER 1 MG TAB.ER.24H PO (08:28)
--- NOTE | 2025-07-29 10:21 | P.DS_ITS ---
DS: Providers Provider Date of Service: 07/29/25 Date of admission: 07/24/25 18:33 Date of discharge: 07/29/25 Primary care physician: Unknown Physician Admitting clinician: Mariela Pollock Consults: 07/24/25 20:06 Consult to Hospitalist Routine Comment: Consulting Provider: [facility] [place] Hospitalists Reason For Exam: New external admit H+P Attending physician on discharge: Petr Parson DS: Diagnosis Discharge Diagnosis (1) Bipolar disorder: Status: Acute (2) Suicide ideation: Status: Resolved (3) Cannabis use disorder: Status: Acute DS: Medications Discharge Medications Home Medications: Previous Rx's ?Medication ?Instructions ?Recorded escitalopram oxalate 20 mg tablet 20 mg PO DAILY 30 da ys #30 tabs 07/29/25 guanfacine 1 mg tablet,extended 1 mg PO DAILY 30 days #30 tabs 07/29/25 release 24 hr hydroxyzine HCl 25 mg tablet 25 mg PO Q6H PRN mild anxiety/insomnia 30 days #30 tabs lamotrigine 200 mg tablet 200 mg PO DAILY 30 days #30 tabs 07/29/25 nicotine (polacrilex) 2 mg gum 2 mg buccal Q2H PRN Bill otine 07/29/25 Cravings 30 days #100 ea nicotine 21 mg/24 hr daily 21 mg transdermal DAILY PRN 07/29/25 transdermal patch nicotine cravings 28 days #2 8 ea ondansetron 4 mg disintegrating 4 mg translingual Q8H PRN Nausea 07/29/25 tablet And Vomiting 30 days #90 tab s Mental Status Exam Mental Status Exam Narrative: Pt is alert and oriented; behavior is cooperative, friendly and calm; patient is not in distress; dressed in casual attire with adequate hygiene and grooming; mood is described as good and affect congruent; eye contact appropriate; Speech is normal rate, volume and prosody and not pressured; no psychomotor agitation/retardation present; thought process is organized and goal directed; Thought content is on tx; otherwise pertinent to relevant topics and without any delusional content, paranoid ideations or grandiosity; denies any SI/HI. Denies AVH and there is no evidence of perceptual disturbance. Patients insight and judgment appear intact. Data Data Completed and Pending Completed studies during hospitalization [Text1]: 07/25/25 07:57 Sodium 144 Potassium 4.3 Chloride 114 H Carbon Dioxide 25 Anion Gap 9 L BUN 17 H Creatinine 0.76 Estim Creat Clear Calc 119.2 Estimated GFR > 60 Random Glucose 118 H Estimat Average Glucose 94 Hemoglobin A1c % 4.9 Calcium 9.3 Total Bilirubin 0.4 AST 26 ALT 19 Alkaline Phosphatase 55 Total Protein 6.7 Albumin 4.4 Triglycerides 64 Cholesterol 127 LDL Cholesterol, Calc 77 HDL Cholesterol 38 L Vitamin B12 867 Free T4 1.11 DS: Summary Hospital Course Hospital Course: 35-year-old female with history of anxiety, depression, PTSD, and bipolar disorder, is a transfer from [facility] yesterday to [facility] for SI with a plan. On interview with his provider, patient notes that two days ago, I lost it a little bit at work. While working, she suddenly started experienced suicide ideation with a plan to walk in an ocean and never return. She immediately went to crisis and was transferred to [facility]. She denies stating she would to slit her wrist. She states she does not know the reason for her suicide thoughts. However, she notes that the past one week has been a rough. Her biological daughter attempted suicide last week; she does not want to elaborate on that, but states she is home with her grandparents. She has three daughters and one of them by adoption. All three children live with the parents of her former . Patient states she has full custody of her children but their grandparents do not allow her to contact them. She states that she ends up being psychiatrically admitted every time something bad happens to my children; It usually takes 3-4 days for her to reset and discharge. She has been living with her partner for the past 3 years and he has been supportive. She has been on Lexapro 10 mg daily at bedtime and lamotrigine 150 mg daily in the morning for the past 18 months and admits to taking as prescribed. Before the past one week, her mood has otherwise been stable and at baseline; she experienced slight changes in mood which she states was situational. She drinks 1-2 glasses of alcoholic beverage yearly, smokes 3-4 bowls of cannabis daily and consumes 10 mg or THC gummies nightly. 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 She currently anxiety or depression. She denies SI/HI/AH/VH. She signed a 3 day noticed yesterday and looking forward to return home when the 3 day notice . Formulation/Clinical reasoning: Bipolar disorder: Likely dysregulated due to psychosocial stressors and excessive cannabis use. She currently denies anxiety or depression. She denies SI/HI/AH/VH. No evidence of yuniel or hypomania. She is willing to have Lexapro increased to 20 mg daily and lamotrigine increased to 200 mg daily; will increase both. Instructed that excessive cannabis can cause or worsen psychiatric symptoms and advised to cut down or avoid use. Continue current treatment regimen. Verbalized understanding and agreed with the plan. Hospital Course: 07/26 pt reports feeling much better and close to being back to her regular self. Her mood is better, she is hopeful and feels more able to cope with emotions. No SI at all. Pt shared that since 2 weeks ago, when her youngest daughter attempted suicide. Pt shared struggle with having her kids living w/ her ex- husbands parents...says she knows that when she's emotionally overwhelmed she can't be helpful to her kids and this past weeks she felt hopeless. As meentioned today she reports feeling better and that she woke up hopeful for first time in 2 weeks. Slept well -no side-effects from increased; discussed meds and she agrees to try intuniv for ADD symptoms and daytime anxiety which she found helpful. Impression: pt remains in good behavioral and impulse control, overall appropriate with peers and staff and engaged in treatment. Her mood is good and she remains hopeful. Regarding dx, will defer to outpt providers to continue to assess; this copywriter has not observed any manic/hypomanic behaviors on the unit. Patients 3 day is coming due and she is not in imminent risk for harm to self or others and is appropriate to return to the community for treatment. She is returning home to her supportive . Her request for discharge is honored. Medication: INcreased to Lexapro 20 mg Increased to Lamictal 200 mg Started Intuniv 1 mg daily Time spent discussing smoking cessation with patient: 3 to 10 minutes Status at Discharge Functional status at discharge: independent ambulation Overall status at discharge: patient is back to baseline Time Spent with Patient Time attestation: Total time managing care of this patient today _40___ minutes. Time spent: Greater than 30 minutes Specific discharge activities: met with pt; discussed with team; charting, scripts Discharge Plan Discharge Anticipated Discharge Date/Time: 07/29/25 10:20 Patient Disposition: Home, Self-Care Discharge Diagnosis: MDD, recurrent, moderate, in full remission (r/o bipolar) Referrals: [facility] Intake for Psyche and Therapy [Other] - 3-5 Days Referral Note: You can walk-in for same day intake for therapy and psychiatry appointments. Please do this as soon as possible as there can be a waitlist. Also please bring your discharge packet, id and insurance to the intake appt. Hours: M-F 7:30am to 4:30pm Physician,Unknown J [Primary Care Provider, Medical] - 1 Week Discharge Medications: New nicotine 21 mg/24 hr Patch 24 Hour 21 mg transdermal DAILY PRN (Reason: nicotine cravings) 28 Days Qty: 28 0RF Rx Instructions: remove at bedtime hydroxyzine HCl 25 mg Tablet 25 mg PO Q6H PRN (Reason: mild anxiety/insomnia) 30 Days Qty: 30 0RF ondansetron 4 mg Tablet,Disintegrating 4 mg translingual Q8H PRN (Reason: Nausea And Vomiting) 30 Days Qty: 90 0RF guanfacine 1 mg Tablet Extended Release 24 Hr 1 mg PO DAILY 30 Days Qty: 30 0RF nicotine (polacrilex) 2 mg Gum 2 mg buccal Q2H PRN (Reason: Nicotine Cravings) 30 Days Qty: 100 0RF Changed lamotrigine 200 mg tablet 200 mg PO DAILY 30 Days Qty: 30 0RF escitalopram oxalate 20 mg tablet 20 mg PO DAILY 30 Days Qty: 30 0RF Diet: Regular diet Activity on Discharge: As tolerated Stand Alone Forms: Patient Portal Discharge page Print Language: Tajik Care Plan Goals: Maintain mood and safe behaviors Take medications as prescribed Practice coping skills Continue with outpatient providers and reach out to them as needed Health Concerns: Mood stability and behaviors Plan of Treatment: Follow up with your PCP, psychiatric provider and other outpatient providers regarding above concerns Take medications as prescribed Assessment: Risk assessment at time of discharge:? Patient was interviewed prior to discharge and found to be fully oriented and without any SI or HI. Patient has improved insight and judgment and wants to continue treatment. Patient is not in imminent risk of harm to self or others and has a safety plan that includes presenting to the closest ER or calling 911 if feeling unsafe.? Patient has been observed closely by nursing and unit staff throughout admission; patient has not engaged in any behaviors that suggest dangerousness to self or others and has demonstrated appropriate behaviors and impulse control
== END 2025-07-29 11:15 | disposition home or self-care (01) | DRG 751 ==
PROVIDERS: Nurse Practitioner Psychiatric/Mental Health; Admitting Provider Psychiatry & Neurology Psychiatry; Visit Provider Psychiatry & Neurology Psychiatry
DX: F33.1 Major depressive disorder, recurrent, moderate (principal); F17.210 Nicotine dependence, cigarettes, uncomplicated; Z71.6 Tobacco abuse counseling; Z79.899 Other long term (current) drug therapy
CPT/HCPCS: 36415; 80053; 80061; 82607; 83036; 84439

== ENCOUNTER → 2025-07-24 18:33 | Outpatient (BNV) | payer OTHER, SELFPAY | PROVIDERS: Admitting Provider Psychiatry & Neurology Psychiatry; Visit Provider Psychiatry & Neurology Psychiatry | DX: F31.9 Bipolar disorder, unspecified (principal); R45.851 Suicidal ideations; F12.90 Cannabis use, unspecified, uncomplicated | CPT/HCPCS: 99232 ==